=== PATIENT | male | born 1985 | race Caucasian/White ===

== ENCOUNTER 2018-02-10 11:36 | Emergency (ER) | payer SELFPAY ==
[~2018-02-10 11:36] MED LIST: ALPR-429 PO; AMOX-362 PO; ANALPRAM; AUG500 PO; BACDS PO; CIP500 PO; CLAR-1 PO; DIA10 PO; DICL-195 PO; DOC100 PO; DOXY25SU PO; FAM20 PO; GABA-549 PO; HYDR2TAB42 PO; IBU600 PO; IBU800 PO; IBUP-1618 PO; KET10 PO; LOR5 PO; LOR5/325 PO; LORA-633 PO; MAGIC; METH10 FT; METO-222 PO; METO-259 PO; METO50TA19 PO; METR-160 PO; NAP250 PO; NO HOME MEDS; NO ROUTINE MEDS; OMEP-125 PO; OMEP-137 PO; ONDA4TAB PO; OXYC-689 PO; OXYC-865 PO; OXYC1TAB54 PO; OXYC1TAB78 PO; PER PO; PHEN120S16 PO; PRO25 PO; TAM4 PO; TAMS0.4C25 PO; TRA50 PO; TRAM-420 PO; ZOLCR625PT PO
--- NOTE | 2018-02-10 11:38 | ER Report ---
History and Physical Time Seen By MD: 11:38 HPI/ROS CHIEF COMPLAINT: Right flank pain HISTORY OF PRESENT ILLNESS: Patient is a 32-year-old male here with complaints of right flank pain and history of nephrolithiasis with prior lithotripsies. Pain started last evening at approximately 1800 hrs. and acutely worsened this morning with radiation from the right flank to be right lower abdomen. Patient has been having burning with urination however denies fevers chills, chest pain , shortness of breath. Patient is hemodynamically stable at time of evaluation, afebrile. REVIEW OF SYSTEMS: Constitutional: No fever, no chills. Eyes: No discharge. ENT: No sore throat. Cardiovascular: No chest pain, no palpitations. Respiratory: No cough, no shortness of breath. Gastrointestinal: + Right flank and right abdominal pain, no vomiting. Genitourinary: + hematuria. Musculoskeletal: + Right flank and CVA tenderness Skin: No rashes. Neurological: No headache. Allergies: Coded Allergies: No Known Drug Allergies (Unverified , 02/10/18) Home Meds Active Scripts Tramadol Hcl (TRAMADOL HCL) 50 Mg Tablet, 50 MG PO Q6H Y for PAIN, #5 TAB 0 Refills Prov:CELSO PERSAUD DO 02/10/18 Discontinued Reported Medications Metoprolol Succinate (METOPROLOL SUCCINATE) 50 Mg Tab.er.24h, 3 TAB PO QDAY for Blood Pressure, TAB 05/12/16 Gabapentin (GABAPENTIN) 300 Mg Capsule, 600 MG PO TID for AD, CAPSULE 05/12/16 [No Home Meds] No Conflict Check 09/03/14 Discontinued Scripts Oxycodone Hcl/Acetaminophen (PERCOCET 5-325 MG TABLET) 1 Each Tablet, 1 EACH PO Q4H Y for PAIN, #15 TAB 0 Refills Prov:MARIA G JANG MD 05/12/16 Tamsulosin Hcl (FLOMAX) 0.4 Mg Cap.er.24h, 0.4 MG PO QDAY, #30 CAP 3 Refills Prov:MARIA G JANG MD 05/12/16 Hx Smoking: Yes Smoking Status: Current: Some Days Smoker Exposure to Second Hand Smoke?: Yes Hx Substance Use Disorder: No Hx Alcohol Use: Yes Constitutional Vital Sign - Last 24 Hours 02/10/18 02/10/18 02/10/18 02/10/18 11:37 11:41 11:51 12:00 Temp 97.5 Pulse 90 80 Resp 18 B/P (MAP) 163/109 163/109 (127) 153/101 (118) Pulse Ox 97 94 O2 Delivery Room Air 02/10/18 02/10/18 02/10/18 02/10/18 12:06 12:21 12:26 12:30 Pulse 76 78 77 Resp 31 15 B/P (MAP) 173/161 (165) Pulse Ox 92 90 98 02/10/18 02/10/18 02/10/18 02/10/18 12:41 12:56 13:00 13:05 Pulse 69 68 68 Resp 15 20 18 B/P (MAP) 136/116 (123) Pulse Ox 93 96 95 02/10/18 02/10/18 02/10/18 02/10/18 13:20 13:30 13:35 13:40 Pulse 71 68 71 Resp 18 12 11 B/P (MAP) 149/106 (120) Pulse Ox 97 96 92 02/10/18 02/10/18 13:45 13:47 Pulse 76 Resp 18 B/P (MAP) 125/81 (96) Pulse Ox 94 Physical Exam General Appearance: The patient is alert, has no immediate need for airway protection and no signs of toxicity. Moderate distress secondary to pain Eyes: Pupils equal and round no pallor or injection. ENT, Mouth: Mucous membranes are moist. Respiratory: There are no retractions, lungs are clear to auscultation. Cardiovascular: Regular rate and rhythm. Gastrointestinal: Mild tenderness to palpation in the right abdomen Neurological: No focal neurological deficits Skin: Warm and dry, no rashes. Musculoskeletal: + Right CVA tenderness Extremities are nontender, nonswollen and have full range of motion. DIFFERENTIAL DIAGNOSIS: After history and physical exam differential diagnosis was considered for back pain including but not limited to muscular pain, herniated disc, spine fracture, intra-abdominal causes and urinary tract infection., Nephrolithiasis Medical Decision Making Data Points Result Diagram: 02/10/18 1211 02/10/18 1211 Laboratory Hematology Test 02/10/18 11:39 02/10/18 12:11 Urine Color Yellow Urine Clarity Clear Urine pH 5.0 pH (4.8-9.5) Urine Specific [place] 1.016 Urine Protein Negative mg/dL (NEGATIVE) Urine Glucose (UA) Negative mg/dL (NEGATIVE) Urine Ketones Negative mg/dL (NEGATIVE) Urine Blood Small (NEGATIVE) Urine Nitrite Negative (NEGATIVE) Urine Bilirubin Negative (NEGATIVE) Urine Urobilinogen Negative mg/dL (0.2-1.9) Urine Leukocyte Esterase Negative (NEGATIVE) Urine RBC 13 /HPF (0-2/HPF) Urine WBC 2 /HPF (0-5/HPF) Urine Squamous Epithelial Cells Few /LPF (</=FEW) Urine Bacteria Negative /HPF (NONE-FEW) Urine Mucus Few /HPF (NONE-FEW) Red Blood Count 5.31 M/uL (4.00-5.60) Mean Corpuscular Volume 89.4 fL (80.0-96.0) Mean Corpuscular Hemoglobin 31.1 pg (26.0-33.0) Mean Corpuscular Hemoglobin Concent 34.8 g/dL (32.0-36.0) Red Cell Distribution Width 14.4 % (11.5-14.5) Mean Platelet Volume 7.9 fL (7.2-11.1) Neutrophils (%) (Auto) 67.6 % (39.4-72.5) Lymphocytes (%) (Auto) 20.3 % (17.6-49.6) Monocytes (%) (Auto) 9.2 % (4.1-12.4) Eosinophils (%) (Auto) 2.1 % (0.4-6.7) Basophils (%) (Auto) 0.8 % (0.3-1.4) Nucleated RBC Relative Count (auto) 0.4 /100WBC Neutrophils # (Auto) 5.8 K/uL (2.0-7.4) Lymphocytes # (Auto) 1.7 K/uL (1.3-3.6) Monocytes # (Auto) 0.8 K/uL (0.3-1.0) Eosinophils # (Auto) 0.2 K/uL (0.0-0.5) Basophils # (Auto) 0.1 K/uL (0.0-0.1) Nucleated RBC Absolute Count (auto) 0.03 K/uL Sodium Level 138 mmol/L (137-145) Potassium Level 4.7 mmol/L (3.5-5.0) Chloride Level 102 mmol/L (98-107) Carbon Dioxide Level 26 mmol/L (22-30) Blood Urea Nitrogen 18 mg/dl (9-21) Creatinine 1.10 mg/dl (0.66-1.25) Glomerular Filtration Rate Calc > 60.0 Random Glucose 94 mg/dl (75-110) Lactate 1.2 mmol/L (0.7-2.1) Calcium Level 9.6 mg/dl (8.4-10.2) Total Bilirubin 0.4 mg/dl (0.2-1.3) Aspartate Amino Transf (AST/SGOT) 23 U/L (0-35) Alanine Aminotransferase (ALT/SGPT) 32 U/L (0-56) Alkaline Phosphatase 66 U/L (0-126) Total Protein 7.6 g/dl (6.3-8.2) Albumin 4.5 g/dl (3.5-5.0) Lipase 213 U/L (23-300) Chemistry Test 02/10/18 11:39 02/10/18 12:11 Urine Color Yellow Urine Clarity Clear Urine pH 5.0 pH (4.8-9.5) Urine Specific [place] 1.016 Urine Protein Negative mg/dL (NEGATIVE) Urine Glucose (UA) Negative mg/dL (NEGATIVE) Urine Ketones Negative mg/dL (NEGATIVE) Urine Blood Small (NEGATIVE) Urine Nitrite Negative (NEGATIVE) Urine Bilirubin Negative (NEGATIVE) Urine Urobilinogen Negative mg/dL (0.2-1.9) Urine Leukocyte Esterase Negative (NEGATIVE) Urine RBC 13 /HPF (0-2/HPF) Urine WBC 2 /HPF (0-5/HPF) Urine Squamous Epithelial Cells Few /LPF (</=FEW) Urine Bacteria Negative /HPF (NONE-FEW) Urine Mucus Few /HPF (NONE-FEW) White Blood Count 8.6 k/uL (4.5-11.0) Red Blood Count 5.31 M/uL (4.00-5.60) Hemoglobin 16.5 g/dL (14.0-18.0) Hematocrit 47.5 % (42.0-52.0) Mean Corpuscular Volume 89.4 fL (80.0-96.0) Mean Corpuscular Hemoglobin 31.1 pg (26.0-33.0) Mean Corpuscular Hemoglobin Concent 34.8 g/dL (32.0-36.0) Red Cell Distribution Width 14.4 % (11.5-14.5) Platelet Count 207 K/uL (150-450) Mean Platelet Volume 7.9 fL (7.2-11.1) Neutrophils (%) (Auto) 67.6 % (39.4-72.5) Lymphocytes (%) (Auto) 20.3 % (17.6-49.6) Monocytes (%) (Auto) 9.2 % (4.1-12.4) Eosinophils (%) (Auto) 2.1 % (0.4-6.7) Basophils (%) (Auto) 0.8 % (0.3-1.4) Nucleated RBC Relative Count (auto) 0.4 /100WBC Neutrophils # (Auto) 5.8 K/uL (2.0-7.4) Lymphocytes # (Auto) 1.7 K/uL (1.3-3.6) Monocytes # (Auto) 0.8 K/uL (0.3-1.0) Eosinophils # (Auto) 0.2 K/uL (0.0-0.5) Basophils # (Auto) 0.1 K/uL (0.0-0.1) Nucleated RBC Absolute Count (auto) 0.03 K/uL Glomerular Filtration Rate Calc > 60.0 Lactate 1.2 mmol/L (0.7-2.1) Calcium Level 9.6 mg/dl (8.4-10.2) Total Bilirubin 0.4 mg/dl (0.2-1.3) Aspartate Amino Transf (AST/SGOT) 23 U/L (0-35) Alanine Aminotransferase (ALT/SGPT) 32 U/L (0-56) Alkaline Phosphatase 66 U/L (0-126) Total Protein 7.6 g/dl (6.3-8.2) Albumin 4.5 g/dl (3.5-5.0) Lipase 213 U/L (23-300) Urinalysis Test 02/10/18 11:39 Urine Color Yellow Urine Clarity Clear Urine pH 5.0 pH (4.8-9.5) Urine Specific [place] 1.016 Urine Protein Negative mg/dL (NEGATIVE) Urine Glucose (UA) Negative mg/dL (NEGATIVE) Urine Ketones Negative mg/dL (NEGATIVE) Urine Blood Small (NEGATIVE) Urine Nitrite Negative (NEGATIVE) Urine Bilirubin Negative (NEGATIVE) Urine Urobilinogen Negative mg/dL (0.2-1.9) Urine Leukocyte Esterase Negative (NEGATIVE) Urine RBC 13 /HPF (0-2/HPF) Urine WBC 2 /HPF (0-5/HPF) Urine Squamous Epithelial Cells Few /LPF (</=FEW) Urine Bacteria Negative /HPF (NONE-FEW) Urine Mucus Few /HPF (NONE-FEW) EKG/Imaging Imaging Location: [facility] - [place] Patient: Troy Mabry : 1985 Visit/Account:[id number] Date of Sevice: 02/10/2018 CT abdomen and pelvis without contrast Indication: Right flank pain. History of nephrolithiasis. Comparison: 08/18/2012. Technique: Axial CT images are obtained through the abdomen and pelvis. Reformatted coronal and sagittal images were reviewed. IV contrast was not administered. One of the following dose optimization techniques was utilized in the performance of this exam: automated exposure control; adjustment of the mA and/ or kV according to the patient's size; or use of an iterative reconstruction technique. Specific details can be referenced in the facility's radiology CT exam operational policy. Findings: Lower lung grissom: Limited views lower lung field are unremarkable. Evaluation of the solid organs of the abdomen is limited without IV contrast. Liver: No focal parenchymal abnormality of the liver. Biliary: Gallbladder appears unremarkable as well as the intra and extra hepatic biliary system. Pancreas: Normal appearance. Spleen: Normal appearance. Adrenal glands: Unremarkable. Kidneys / retroperitoneum: Both kidneys show several small stones in the collecting system, 2 mm and less. More on the left side. No hydronephrosis seen in either kidney. Ureters show no discrete stones. Kidneys show no discrete lesions. Bowel / peritoneum / mesenteries: Is a small short segment of luminal narrowing and wall thickening the hepatic flexure region the colon without focal abnormality. The colon shows no other focal abnormality. The appendix is not identified. Small bowel shows no focal normality or obstruction. The stomach is mainly decompressed and grossly normal. No free air, free fluid, fluid collections or areas of inflammation. Lymph node assessment: No pathologic adenopathy identified. Pelvic structures: Appear unremarkable. Vessels: No significant atherosclerotic calcifications seen throughout a nonaneurysmal abdominal aorta and branches. Musculoskeletal / Body wall: No acute or aggressive osseous abnormality. IMPRESSION: 1. Bilateral nonobstructing renal calculi. 2. The hepatic flexure region colon does show short segment of luminal narrowing and wall thickening. There is no focal abnormality. This could be due to contraction. However follow-up colonoscopy can evaluate for underlying pathology. ED Course/Re-evaluation ED Course Patient is a 32-year-old male with a history of nephrolithiasis status post lithotripsy here with right CVA tenderness with radiation to the right abdomen and groin since last evening acutely worsening today. Patient was initially treated with intravenous lidocaine for renal colic, fluids and Zofran. Labs were remarkable for small amount of blood in the urine however were otherwise unremarkable. CT of the abdomen and pelvis showed renal calculi with no evidence of obstruction or ureterolithiasis. Urinalysis showed no signs of infection. Patient was discharged in stable condition and advised to follow-up with his PCP in the next week. Patient was given a prescription for tramadol for outpatient analgesia. Decision to Disposition Date: Feb 10, 2018 Decision to Disposition Time: 13:40 Depart Departure Latest Vital Signs Vital Signs Date Time Temp Pulse Resp B/P (MAP) Pulse Ox O2 Delivery O2 Flow Rate FiO2 02/10/18 13:47 125/81 (96) 02/10/18 13:45 76 18 94 02/10/18 11:37 97.5 Room Air Impression: Primary Impression: Flank pain Condition: Improved Disposition: HOME OR SELF-CARE New Scripts Tramadol Hcl (TRAMADOL HCL) 50 Mg Tablet 50 MG PO Q6H Y for PAIN, #5 TAB 0 Refills Prov: CELSO PERSAUD DO 02/10/18 Patient Instructions: Flank Pain (ED) Additional Instructions: Please follow-up with her family doctor in the next week. No obstructing kidney stones were identified on the ear exam. You may need to follow up for colonoscopy as there was an incidental narrowing of the bowel identified on CT imaging. You may take tramadol 1 tablet every 6-8 hours as needed for breakthrough pain control. He may take naproxen 500 mg every 12 hours as needed for pain control. CELSO PERSAUD DO Feb 10, 2018 11:38
[2018-02-10] MEDS ORDERED: NS(*) 0.9% 1000 ML BAG 1,000 ML IV ONE (11:47)
[2018-02-10] MEDS ORDERED: LIDOCAINE 2% IV 100 MG/5ML SYR IVP ONE (11:50)
[2018-02-10] MEDS ORDERED: ONDANSETRON 4 MG/2 ML VIAL IVP ONE (11:50)
[2018-02-10 12:37] LABS: PLATELET COUNT, AUTOMATED 207 K/uL (150-450)
--- NOTE | 2018-02-10 13:37 | RADIOLOGY IMAGING REPORT ---
FACILITY: [facility] PATIENT NAME: Troy Mabry : 1985 MR: [id number] V: [id number] EXAM DATE: [id number] ORDERING PHYSICIAN: CELSO PERSAUD TECHNOLOGIST: Location: [facility] - [place] Patient: Troy Mabry : 1985 Visit/Account:[id number] Date of Sevice: 02/10/2018 CT abdomen and pelvis without contrast Indication: Right flank pain. History of nephrolithiasis. Comparison: 08/18/2012. Technique: Axial CT images are obtained through the abdomen and pelvis. Reformatted coronal and sagit migel images were reviewed. IV contrast was not administered. One of the following dose optimization techniques was utilized in the performance of this exam: auto mated exposure control; adjustment of the mA and/or kV according to the patient's size; or use of an iterative reconstruction technique. Specific details can be referenced in the facility's radiology C T exam operational policy. Findings: Lower lung grissom: Limited views lower lung field are unremarkable. Evaluation of the solid organs of the abdomen is limited without IV contrast. Liver: No focal parenchymal abnormality of the liver. Biliary: Gallbladder appears unremarkable as well as the intra and extra hepatic biliary system. Pancreas: Normal appearance. Spleen: Normal appearance. Adrenal glands: Unremarkable. Kidneys / retroperitoneum: Both kidneys show several small stones in the collecting system, 2 mm and less. More on the left side. No hydronephrosis seen in either kidney. Ureters show no discrete stones . Kidneys show no discrete lesions. Bowel / peritoneum / mesenteries: Is a small short segment of luminal narrowing and wall thickening t he hepatic flexure region the colon without focal abnormality. The colon shows no other focal abnorma lity. The appendix is not identified. Small bowel shows no focal normality or obstruction. The stomac h is mainly decompressed and grossly normal. No free air, free fluid, fluid collections or areas of inflammation. Lymph node assessment: No pathologic adenopathy identified. Pelvic structures: Appear unremarkable. Vessels: No significant atherosclerotic calcifications seen throughout a nonaneurysmal abdominal aort a and branches. Musculoskeletal / Body wall: No acute or aggressive osseous abnormality. IMPRESSION: 1. Bilateral nonobstructing renal calculi. 2. The hepatic flexure region colon does show short segment of luminal narrowing and wall thickening. There is no focal abnormality. This could be due to contraction. However follow-up colonoscopy can e valuate for underlying pathology. Report Dictated By: Saran Castellon at 02/10/2018 1:26 PM Report E-Signed By: Saran Castellon at 02/10/2018 1:33 PM WSN:[id number]
[2018-02-10] MEDS ORDERED: TRAM-420 PO (13:45)
[2018-02-10 13:47] VITALS: BP 125/81
== END 2018-02-10 13:53 | disposition home or self-care (01) ==
LOC: ER 11:56
DX: R10.31 Right lower quadrant pain (principal); N20.0 Calculus of kidney
CPT/HCPCS: 74176; 81001; 83605; 83690; 85025; 96361; 96374; 99284; J2001; J2405; J7030; 82040; 82247; 82310; 82374; 82435; 82565; 82947; 84075; 84132; 84155; 84295; 84450; 84460; 84520

== ENCOUNTER → 2018-02-23 | Outpatient (REF) | payer SELFPAY | LOC: ZZSENDIN 17:43 | DX: N30.01 Acute cystitis with hematuria (principal) | CPT/HCPCS: 81001; 87088 ==

== ENCOUNTER 2018-04-13 03:07 | Emergency (ER) | payer SELFPAY ==
--- NOTE | 2018-04-13 03:11 | ER Report ---
History and Physical Time Seen By MD: 03:09 HPI/ROS CHIEF COMPLAINT: Right ankle injury HISTORY OF PRESENT ILLNESS: 32-year-old male presents via wheelchair complaining of severe right ankle pain. He rolled his ankle area. Patient has a history of previous ankle injury. Patient scraped his knees. He thinks his last tetanus shots greater than 10 years. Allergies: Coded Allergies: No Known Drug Allergies (Unverified , 04/13/18) Home Meds Active Scripts Hydrocodone Bit/Acetaminophen (HYDROCODON-ACETAMINOPHEN 5-325) 1 Each Tablet, 1 EACH PO Q4-6H PRN for PAIN, #12 TAKE ONE TABLET BY MOUTH EVERY 4-6 HOURS NEEDED FOR PAIN Prov:AMXI BULLARD DO 04/13/18 Tramadol Hcl (TRAMADOL HCL) 50 Mg Tablet, 50 MG PO Q6H PRN for PAIN, #5 TAB 0 Refills Prov:CELSO PERSAUD DO 02/10/18 Reported Medications Clindamycin Palmitate Hcl (CLINDAMYCIN PALMITATE HCL) 75 Mg/5 Ml Soln.recon, 150 MG PO Q6H, BOT 04/13/18 Gabapentin (GABAPENTIN) 300 Mg Capsule, 300 MG PO TID, CAPSULE 04/13/18 Amlodipine Besylate (AMLODIPINE BESYLATE) 2.5 Mg Tablet, 1 TAB PO QDAY, #30 TAB 04/13/18 Reviewed Nurses Notes: Yes Old Medical Records Reviewed: Yes Hx Smoking: Yes Smoking Status: Current: Some Days Smoker Exposure to Second Hand Smoke?: Yes Hx Substance Use Disorder: No Hx Alcohol Use: Yes Constitutional Vital Sign - Last 24 Hours 04/13/18 04/13/18 03:10 03:54 Temp 99.1 Pulse 80 85 Resp 14 16 B/P (MAP) 134/96 132/85 (101) Pulse Ox 96 92 O2 Delivery Room Air Room Air Physical Exam General appearance: Alert no distress. Respiratory: Chest is non tender, lungs are clear to auscultation. Cardiac: Regular rate and rhythm Extremities: The right ankle is has gross swelling. All digits are neurovascularly intact. DIFFERENTIAL DIAGNOSIS: After history and physical exam differential diagnosis was considered for sprain, strain, fracture, dislocation, contusion Medical Decision Making EKG/Imaging Imaging X-ray: Right ankle, 3 views was obtained. I viewed the images myself on the PACS system. My interpretation of the images is: No fracture no dislocation or malalignment, there are some opacities in the inferior aspect of the lateral malleolus likely old. The radiologist interpretation had no clinically significant variation from this interpretation. ED Course/Re-evaluation ED Course Patient was admitted to an examination room. H&P was done. The differential diagnosis was considered. On clinical examination. Swollen right ankle consistent with a sprain. Diagnostic x-rays show a new obvious fractures. There is some cortications at the base of the lateral malleolus which are likely old. Patient was placed in Oren wrap and air splint. He is advised nonweightbearing for several days. Patient advised ibuprofen 600 mg 3 times daily. A prescription in for a limited number of hydrocodone were provided. Decision to Disposition Date: Apr 13, 2018 Decision to Disposition Time: 03:34 Depart Departure Latest Vital Signs Vital Signs Date Time Temp Pulse Resp B/P (MAP) Pulse Ox O2 Delivery O2 Flow Rate FiO2 04/13/18 03:54 85 16 132/85 (101) 92 Room Air 04/13/18 03:10 99.1 Impression: Primary Impression: Moderate right ankle sprain Additional Impression: Avulsion fracture Condition: Improved Disposition: HOME OR SELF-CARE Referrals: MEHRDAD MAYERS MD New Scripts Hydrocodone Bit/Acetaminophen (HYDROCODON-ACETAMINOPHEN 5-325) 1 Each Tablet 1 EACH PO Q4-6H PRN for PAIN, #12 TAKE ONE TABLET BY MOUTH EVERY 4-6 HOURS NEEDED FOR PAIN Prov: MAXI BULLARD DO 04/13/18 Patient Instructions: Ankle Sprain (ED) Additional Instructions: Take ibuprofen 200 mg 3 tablets 3 times a day with food. Problem Qualifiers Primary Impression: Moderate right ankle sprain Encounter type: initial encounter Qualified Codes: S93.401A - Sprain of unspecified ligament of right ankle, initial encounter MAXI BULLARD DO Apr 13, 2018 03:11
[2018-04-13] MEDS ORDERED: GABA-549 PO (03:15)
[2018-04-13] MEDS ORDERED: AMLO2.5T76 PO (03:15)
[2018-04-13] MEDS ORDERED: CLIN75SO6 PO (03:17)
[2018-04-13] MEDS ORDERED: APAP/HYDROCODONE 325/5 TAB PO ONE (03:20)
[2018-04-13] MEDS ORDERED: DIPHTH/TETANUS/ACEL. PERTUSSIS IM ONLY ONE (03:20)
[2018-04-13] MEDS ORDERED: IBUPROFEN 600 MG TAB PO ONE (03:20)
[2018-04-13] MEDS ORDERED: LOR5/325 PO (03:39)
--- NOTE | 2018-04-13 03:43 | RADIOLOGY IMAGING REPORT ---
FACILITY: [facility] PATIENT NAME: Troy Mabry : 1985 MR: [id number] V: [id number] EXAM DATE: ORDERING PHYSICIAN: MAXI BULLARD TECHNOLOGIST: Location: [facility] [place] Patient: Troy Mabry : 1985 Visit/Account:[id number] Date of Sevice: 04/13/2018 INDICATION: rolled ankle r/o Fx. DATE: 04/13/2018 3:38 AM. TECHNIQUE: ANKLE 3 VIEW MIN RIGHT COMPARISON: Ankle radiographs September 03, 2014 FINDINGS: There has been surgery at the distal ankle with a syndesmotic repair. Soft tissues are swol pipe over the lateral malleolus. The fragment at the tip of the lateral malleolus is well corticated. IMPRESSION: Soft tissue swelling over the lateral malleolus and history of prior ankle surgical repair but no acu te osseous abnormality. Report Dictated By: Karl Patiño MD at 04/13/2018 3:38 AM Report E-Signed By: Karl Patiño MD at 04/13/2018 3:40 AM WSN:[id number]
[2018-04-13 03:54] VITALS: BP 132/85
== END 2018-04-13 03:57 | disposition home or self-care (01) ==
LOC: ER 03:11
DX: S93.401A Sprain of unspecified ligament of right ankle, initial encounter (principal)
CPT/HCPCS: 73610; 90471; 90715; 99283; L1930

== ENCOUNTER 2018-05-14 20:13 | Emergency (ER) | payer SELFPAY ==
[~2018-05-14 20:13] MED LIST changes: +AMLO2.5T76 PO; +CLIN75SO6 PO; -METR-160 PO; +METR500T54 PO
[2018-05-14] MEDS ORDERED: HYDROMORPHONE HCL 1 MG/ML SYRINGE IVP ONE (20:20)
[2018-05-14] MEDS ORDERED: ONDANSETRON 4 MG/2 ML VIAL IVP ONE (20:20)
[2018-05-14] MEDS ORDERED: NS(*) 0.9% 1000 ML BAG 1,000 ML IV ONE (20:20)
[2018-05-14] MEDS ORDERED: METO50TA19 PO (20:22)
[2018-05-14] MEDS ORDERED: IOPAMIDOL 76% 75 ML INFUS BTL 75 ML ONE (20:34)
--- NOTE | 2018-05-14 20:34 | ER Report ---
History and Physical Time Seen By MD: 20:19 Hx. of Stated Complaint: C/O "KIDNEY STONES," BILATERAL FLANK PAIN RADIATING AROUND TO FRONT, DYSURIA, VOMITING X 6, ONSET LAST NIGHT. HPI/ROS CHIEF COMPLAINT: abdominal pain, thinks may be passing kidney stones HISTORY OF PRESENT ILLNESS: This is a 32 year old male. He has had abdominal pain and bilateral flank pain. These have been present since Monday evening. He has had dark urine and thinks that he is having kidney stones again, has had multiple lithotripsies in the past. Has no fevers. Nothing makes the pain worse or better. Has no pain with urination. Has no diarrhea or changes in bowels. He has poor appetite. He did drink on Monday evening, which is when the pain started. Allergies: Coded Allergies: No Known Drug Allergies (Unverified , 04/13/18) Home Meds Active Scripts Ondansetron (ONDANSETRON ODT) 4 Mg Tab.rapdis, 4 MG PO Q6H PRN for NAUSEA/VOMITING, #20 TAB 0 Refills Prov:MARIA G JANG MD 05/15/18 Oxycodone Hcl/Acetaminophen (PERCOCET 5-325 MG TABLET) 1 Each Tablet, 1 EACH PO Q4H PRN for PAIN, #12 TAB 0 Refills Prov:MARIA G JANG MD 05/15/18 Reported Medications Metoprolol Succinate (METOPROLOL SUCCINATE) 50 Mg Tab.er.24h, 2 TAB PO QDAY, TAB 05/14/18 Gabapentin (GABAPENTIN) 300 Mg Capsule, 300 MG PO TID, CAPSULE 04/13/18 Amlodipine Besylate (AMLODIPINE BESYLATE) 2.5 Mg Tablet, 1 TAB PO QDAY, #30 TAB 04/13/18 Discontinued Reported Medications Clindamycin Palmitate Hcl (CLINDAMYCIN PALMITATE HCL) 75 Mg/5 Ml Soln.recon, 150 MG PO Q6H, BOT 04/13/18 Discontinued Scripts Hydrocodone Bit/Acetaminophen (HYDROCODON-ACETAMINOPHEN 5-325) 1 Each Tablet, 1 EACH PO Q4-6H PRN for PAIN, #12 TAKE ONE TABLET BY MOUTH EVERY 4-6 HOURS NEEDED FOR PAIN Prov:MAXI BULLARD DO 04/13/18 Tramadol Hcl (TRAMADOL HCL) 50 Mg Tablet, 50 MG PO Q6H PRN for PAIN, #5 TAB 0 Refills Prov:CELSO PERSAUD DO 02/10/18 Reviewed Nurses Notes: Yes Hx Smoking: Yes Smoking Status: Current: Some Days Smoker Exposure to Second Hand Smoke?: Yes Hx Substance Use Disorder: No Hx Alcohol Use: Yes Constitutional Vital Sign - Last 24 Hours 05/14/18 05/14/18 05/14/18 05/14/18 20:16 20:17 20:28 20:58 Temp 98.6 Pulse 78 84 71 Resp 16 B/P (MAP) 160/105 (123) 160/105 Pulse Ox 99 96 89 O2 Delivery Room Air 05/14/18 05/14/18 05/14/18 05/14/18 21:13 21:33 21:48 22:03 Pulse 68 70 75 66 Pulse Ox 89 93 91 91 05/14/18 05/14/18 05/14/18 05/14/18 22:08 22:23 22:38 23:57 Pulse 68 67 73 B/P (MAP) 170/99 (122) Pulse Ox 90 93 94 05/15/18 05/15/18 05/15/18 05/15/18 00:00 00:08 00:13 00:30 Pulse 69 B/P (MAP) 161/101 (121) 149/93 (111) Pulse Ox 92 91 05/15/18 05/15/18 05/15/18 05/15/18 00:43 00:58 01:00 01:13 Pulse 95 76 B/P (MAP) 144/86 (105) Pulse Ox 91 Intake and Output0 05/14/18 05/14/18 05/15/18 15:00 23:00 07:00 Intake Total 1000 ml Balance 1000 ml Physical Exam General Appearance: The patient is alert. Acute distress because of pain. Non-toxic in appearance. Eyes: Pupils are equal, round. No pallor, injection or icterus. ENT: Mucous membranes are moist. Normal oral mucosa. Posterior oropharynx is normal. Neck: Supple and non tender. Respiratory: Lungs are clear to auscultation. Cardiovascular: Regular rate and rhythm. No murmurs, gallops or rubs. Normal capillary refill. Gastrointestinal: Abdomen is soft, diffuse tenderness, worse central abdomen. Nondistended. Guarding, but no rebound. Normal active bowel sounds. No costovertebral angle tenderness with percussion. Neurological: Alert and oriented x3. No focal neurologic deficits Skin: Warm and dry. DIFFERENTIAL DIAGNOSIS: After history and physical exam, differential diagnosis was considered for pain including but not limited to biliary colic, kidney stones, cholecystitis, peptic ulcer disease, pancreatitis, and gastroenteritis. Medical Decision Making Data Points Result Diagram: 05/14/18203205/14/182032 Laboratory Hematology Test 05/14/18 20:33 05/14/18 20:45 Red Blood Count 5.61 M/uL (4.00-5.60) Mean Corpuscular Volume 88.9 fL (80.0-96.0) Mean Corpuscular Hemoglobin 30.9 pg (26.0-33.0) Mean Corpuscular Hemoglobin Concent 34.8 g/dL (32.0-36.0) Red Cell Distribution Width 14.1 % (11.5-14.5) Mean Platelet Volume 7.7 fL (7.2-11.1) Neutrophils (%) (Auto) 77.9 % (39.4-72.5) Lymphocytes (%) (Auto) 10.8 % (17.6-49.6) Monocytes (%) (Auto) 10.3 % (4.1-12.4) Eosinophils (%) (Auto) 0.6 % (0.4-6.7) Basophils (%) (Auto) 0.4 % (0.3-1.4) Nucleated RBC Relative Count (auto) 0.1 /100WBC Neutrophils # (Auto) 8.9 K/uL (2.0-7.4) Lymphocytes # (Auto) 1.2 K/uL (1.3-3.6) Monocytes # (Auto) 1.2 K/uL (0.3-1.0) Eosinophils # (Auto) 0.1 K/uL (0.0-0.5) Basophils # (Auto) 0.0 K/uL (0.0-0.1) Nucleated RBC Absolute Count (auto) 0.01 K/uL Sodium Level 137 mmol/L (137-145) Potassium Level 3.9 mmol/L (3.5-5.0) Chloride Level 101 mmol/L (98-107) Carbon Dioxide Level 24 mmol/L (22-30) Blood Urea Nitrogen 15 mg/dl (9-21) Creatinine 1.00 mg/dl (0.66-1.25) Glomerular Filtration Rate Calc > 60.0 Random Glucose 110 mg/dl (75-110) Calcium Level 9.8 mg/dl (8.4-10.2) Total Bilirubin 1.1 mg/dl (0.2-1.3) Aspartate Amino Transf (AST/SGOT) 40 U/L (0-35) Alanine Aminotransferase (ALT/SGPT) 37 U/L (0-56) Alkaline Phosphatase 77 U/L (0-126) Total Protein 8.3 g/dl (6.3-8.2) Albumin 4.6 g/dl (3.5-5.0) Urine Color Yellow Urine Clarity Clear Urine pH 5.0 pH (4.8-9.5) Urine Specific [place] 1.019 Urine Protein Negative mg/dL (NEGATIVE) Urine Glucose (UA) Negative mg/dL (NEGATIVE) Urine Ketones 80 mg/dL (NEGATIVE) Urine Blood Moderate (NEGATIVE) Urine Nitrite Negative (NEGATIVE) Urine Bilirubin Negative (NEGATIVE) Urine Urobilinogen Negative mg/dL (0.2-1.9) Urine Leukocyte Esterase Negative (NEGATIVE) Urine RBC 55 /HPF (0-2/HPF) Urine WBC 5 /HPF (0-5/HPF) Urine Squamous Epithelial Cells None /LPF (</=FEW) Urine Calcium Oxalate Crystals Few /HPF (NONE) Urine Bacteria Negative /HPF (NONE-FEW) Urine Mucus Few /HPF (NONE-FEW) Chemistry Test 05/14/18 20:33 05/14/18 20:45 White Blood Count 11.4 k/uL (4.5-11.0) Red Blood Count 5.61 M/uL (4.00-5.60) Hemoglobin 17.4 g/dL (14.0-18.0) Hematocrit 49.9 % (42.0-52.0) Mean Corpuscular Volume 88.9 fL (80.0-96.0) Mean Corpuscular Hemoglobin 30.9 pg (26.0-33.0) Mean Corpuscular Hemoglobin Concent 34.8 g/dL (32.0-36.0) Red Cell Distribution Width 14.1 % (11.5-14.5) Platelet Count 224 K/uL (150-450) Mean Platelet Volume 7.7 fL (7.2-11.1) Neutrophils (%) (Auto) 77.9 % (39.4-72.5) Lymphocytes (%) (Auto) 10.8 % (17.6-49.6) Monocytes (%) (Auto) 10.3 % (4.1-12.4) Eosinophils (%) (Auto) 0.6 % (0.4-6.7) Basophils (%) (Auto) 0.4 % (0.3-1.4) Nucleated RBC Relative Count (auto) 0.1 /100WBC Neutrophils # (Auto) 8.9 K/uL (2.0-7.4) Lymphocytes # (Auto) 1.2 K/uL (1.3-3.6) Monocytes # (Auto) 1.2 K/uL (0.3-1.0) Eosinophils # (Auto) 0.1 K/uL (0.0-0.5) Basophils # (Auto) 0.0 K/uL (0.0-0.1) Nucleated RBC Absolute Count (auto) 0.01 K/uL Glomerular Filtration Rate Calc > 60.0 Calcium Level 9.8 mg/dl (8.4-10.2) Total Bilirubin 1.1 mg/dl (0.2-1.3) Aspartate Amino Transf (AST/SGOT) 40 U/L (0-35) Alanine Aminotransferase (ALT/SGPT) 37 U/L (0-56) Alkaline Phosphatase 77 U/L (0-126) Total Protein 8.3 g/dl (6.3-8.2) Albumin 4.6 g/dl (3.5-5.0) Urine Color Yellow Urine Clarity Clear Urine pH 5.0 pH (4.8-9.5) Urine Specific [place] 1.019 Urine Protein Negative mg/dL (NEGATIVE) Urine Glucose (UA) Negative mg/dL (NEGATIVE) Urine Ketones 80 mg/dL (NEGATIVE) Urine Blood Moderate (NEGATIVE) Urine Nitrite Negative (NEGATIVE) Urine Bilirubin Negative (NEGATIVE) Urine Urobilinogen Negative mg/dL (0.2-1.9) Urine Leukocyte Esterase Negative (NEGATIVE) Urine RBC 55 /HPF (0-2/HPF) Urine WBC 5 /HPF (0-5/HPF) Urine Squamous Epithelial Cells None /LPF (</=FEW) Urine Calcium Oxalate Crystals Few /HPF (NONE) Urine Bacteria Negative /HPF (NONE-FEW) Urine Mucus Few /HPF (NONE-FEW) Urinalysis Test 05/14/18 20:45 Urine Color Yellow Urine Clarity Clear Urine pH 5.0 pH (4.8-9.5) Urine Specific [place] 1.019 Urine Protein Negative mg/dL (NEGATIVE) Urine Glucose (UA) Negative mg/dL (NEGATIVE) Urine Ketones 80 mg/dL (NEGATIVE) Urine Blood Moderate (NEGATIVE) Urine Nitrite Negative (NEGATIVE) Urine Bilirubin Negative (NEGATIVE) Urine Urobilinogen Negative mg/dL (0.2-1.9) Urine Leukocyte Esterase Negative (NEGATIVE) Urine RBC 55 /HPF (0-2/HPF) Urine WBC 5 /HPF (0-5/HPF) Urine Squamous Epithelial Cells None /LPF (</=FEW) Urine Calcium Oxalate Crystals Few /HPF (NONE) Urine Bacteria Negative /HPF (NONE-FEW) Urine Mucus Few /HPF (NONE-FEW) EKG/Imaging Imaging Computed tomograpy abdomen and pelvis with IV contrast Indication: Flank pain. History of renal stones. Comparison: 02/10/2018. Technique: Transaxial computed tomography images were obtained through the abdomen and pelvis following the injection of nonionic iodinated intravenous contrast. Reformatted coronal and sagittal images were also obtained. One of the following dose optimization techniques was utilized in the performance of this exam: Automated exposure control; adjustment of the mA and/or kV according to the patient's size; or use of an iterative reconstruction technique. Specific details can be referenced in the facility's radiology CT exam operational policy. Contrast: 75 ml of Isovue-370 IV contrast. Findings: Lower lung grissom: Limited views lower lung field are unremarkable. Liver: There is mild diffuse fatty liver. No focal parenchymal abnormality or intrahepatic biliary dilatation is seen. Biliary: Gallbladder is borderline distended/hydropic measuring 9.9 cm in length. No calcified stones. No definitive extrahepatic biliary dilatation is seen. Pancreas: There is extensive peripancreatic inflammatory stranding and ill- defined peripancreatic fluid within the retroperitoneum. There is mild heterogeneous enhancement of the head and uncinate process which may be related to parenchymal edema. No ductal dilatation. Findings are compatible with acute pancreatitis. Areas of suspected fluid attenuation are seen most pronounced about the tail extending about the transverse portion of the duodenum and along Gerota's fascia. Small amount of fluid extends about the gallbladder within the gallbladder fossa. Splenic vein is well opacified with contrast as is the superior mesenteric vein and the portal vein. Spleen: Normal appearance. Adrenal glands: Unremarkable. Kidneys / retroperitoneum: There are are bilateral nonobstructing renal calculi identified. These calculi were seen on the previous noncontrast study. No ureteral dilatation or ureteral calculi. Bowel / peritoneum / mesenteries: No colonic wall thickening or pericolonic inflammatory changes are seen. There is some wall thickening of the transverse portion of the duodenum extending to the descending portion of the duodenum a djacent to the pancreatic inflammation. This is felt to represent reactive wall thickening. No evidence for duodenal obstruction. No free pelvic fluid. Lymph node assessment: No pathologic adenopathy identified. Pelvic structures: Appear unremarkable. Vessels: No significant atherosclerotic calcifications seen throughout a nonaneurysmal abdominal aorta and branches. Musculoskeletal / Body wall: No acute or aggressive osseous abnormality. IMPRESSION: 1. CT findings consistent with acute pancreatitis with marked peripancreatic inflammation with ill-defined areas of fluid attenuation as detailed above. 2. Gallbladder distention without calcified gallstones. 3. Mild fatty liver. 4. Wall thickening of the second and third portion of the duodenum which is felt to be reactive to the peripancreatic inflammation. 5. Multiple nonobstructing bilateral renal calculi. Report Dictated By: Lyndon Eid at 05/14/2018 9:51 PM GALLBLADDER HISTORY: Pancreatitis. COMPARISON: None. FINDINGS: Pancreas: Echogenic and enlarged. No peripancreatic fluid collection or pseudo cyst. There is mild adjacent edema. Upper abdominal aorta and IVC: Aorta and IVC are patent by color Doppler and are unremarkable. Mid aorta is 1.6 cm in cross-section. Liver: Normal. The portal vein is patent with normal hepatopetal flow. Hepatic vein is patent. Gallbladder: No stones, wall thickening, or pericholecystic fluid. Negative sonographic Del Cid sign. Common duct: Normal, measuring 5 mm. Right kidney: Normal in size and echogenicity. It measures 10.7 x 4.5 x 6.3 cm. No hydronephrosis. Ascites: None. IMPRESSION: 1. Echogenic and enlarged pancreas with adjacent edema, compatible with pancreatitis. No pseudocyst. 2. Normal gallbladder. The remainder of the right upper quadrant ultrasound is also normal. Report Dictated By: Lottie Garcia at 05/15/2018 12:07 AM ED Course/Re-evaluation Clinical Indication for ER IV: Hydration, IV Access ED Course The patient's pain improved with morphine. Initial Dilaudid did not help much. He received a few doses of morphine. IV fluids. CT scan obtained and shows pancreatitis. Discussed with the patient regarding the symptoms, we talked about possible admission however the patient is able to tolerate liquids and was able to take oral pain medicines without problem. He would like to try and return home and treat with clear liquids and bland diet. Decision to Disposition Date: May 15, 2018 Decision to Disposition Time: 01:14 Depart Departure Latest Vital Signs Vital Signs Date Time Temp Pulse Resp B/P (MAP) Pulse Ox O2 Delivery O2 Flow Rate FiO2 05/15/18 01:13 91 05/15/18 01:00 144/86 (105) 05/15/18 00:58 76 05/14/18 20:17 98.6 16 Room Air Impression: Primary Impression: Pancreatitis Condition: Improved Disposition: HOME OR SELF-CARE New Scripts Ondansetron (ONDANSETRON ODT) 4 Mg Tab.rapdis 4 MG PO Q6H PRN for NAUSEA/VOMITING, #20 TAB 0 Refills Prov: MARIA G JANG MD 05/15/18 Oxycodone Hcl/Acetaminophen (PERCOCET 5-325 MG TABLET) 1 Each Tablet 1 EACH PO Q4H PRN for PAIN, #12 TAB 0 Refills Prov: MARIA G JANG MD 05/15/18 Patient Instructions: Pancreatitis (ED) Additional Instructions: Start with Clear liquids and bland diet for the next 24 hours. Slowly advance diet as pain improves. Return if unable to tolerate oral intake and will need to consider admission to the hospital. Avoid alcohol. Problem Qualifiers Primary Impression: Pancreatitis Chronicity: acute Pancreatitis type: alcohol induced Acute pancreatitis complication: no infection or necrosis Qualified Codes: K85.20 - Alcohol induced acute pancreatitis without necrosis or infection MARIA G JANG MD May 14, 2018 20:34
[2018-05-14 20:39] LABS: PLATELET COUNT, AUTOMATED 224 K/uL (150-450)
[2018-05-14] MEDS ORDERED: MORPHINE 4 MG/ML SDV IVP ONE ×2 (21:30→23:55)
--- NOTE | 2018-05-14 22:11 | RADIOLOGY IMAGING REPORT ---
[place]AC[place] [facility] [place] NAME: Troy Mabry : 1985 MR: [id number] V: [id number] EXAM DATE: ORDERING PHYSICIAN: MARIA G JANG TECHNOLOGIST: [facility] Patient: Troy Mabry : 1985 Visit/Account:[id number] Date of Sevice: 05/14/2018 Computed tomograpy abdomen and pelvis with IV contrast Indication: Flank pain. History of renal stones. Comparison: 02/10/2018. Technique: Transaxial computed tomography images were obtained through the abdomen and pelvis follo wing the injection of nonionic iodinated intravenous contrast. Reformatted coronal and sagittal image s were also obtained. One of the following dose optimization techniques was utilized in the performance of this exam: Autom ated exposure control; adjustment of the mA and/or kV according to the patient's size; or use of an i terative reconstruction technique. Specific details can be referenced in the facility's radiology C T exam operational policy. Contrast: 75 ml of Isovue-370 IV contrast. Findings: Lower lung grissom: Limited views lower lung field are unremarkable. Liver: There is mild diffuse fatty liver. No focal parenchymal abnormality or intrahepatic biliary d ilatation is seen. Biliary: Gallbladder is borderline distended/hydropic measuring 9.9 cm in length. No calcified stone s. No definitive extrahepatic biliary dilatation is seen. Pancreas: There is extensive peripancreatic inflammatory stranding and ill-defined peripancreatic flu id within the retroperitoneum. There is mild heterogeneous enhancement of the head and uncinate proc ess which may be related to parenchymal edema. No ductal dilatation. Findings are compatible with a cute pancreatitis. Areas of suspected fluid attenuation are seen most pronounced about the tail exte nding about the transverse portion of the duodenum and along Gerota's fascia. Small amount of fluid extends about the gallbladder within the gallbladder fossa. Splenic vein is well opacified with cont rast as is the superior mesenteric vein and the portal vein. Spleen: Normal appearance. Adrenal glands: Unremarkable. Kidneys / retroperitoneum: There are are bilateral nonobstructing renal calculi identified. These ca lculi were seen on the previous noncontrast study. No ureteral dilatation or ureteral calculi. Bowel / peritoneum / mesenteries: No colonic wall thickening or pericolonic inflammatory changes are seen. There is some wall thickening of the transverse portion of the duodenum extending to the desce nding portion of the duodenum adjacent to the pancreatic inflammation. This is felt to represent sushil ctive wall thickening. No evidence for duodenal obstruction. No free pelvic fluid. Lymph node assessment: No pathologic adenopathy identified. Pelvic structures: Appear unremarkable. Vessels: No significant atherosclerotic calcifications seen throughout a nonaneurysmal abdominal aort a and branches. Musculoskeletal / Body wall: No acute or aggressive osseous abnormality. IMPRESSION: 1. CT findings consistent with acute pancreatitis with marked peripancreatic inflammation with ill-d efined areas of fluid attenuation as detailed above. 2. Gallbladder distention without calcified gallstones. 3. Mild fatty liver. 4. Wall thickening of the second and third portion of the duodenum which is felt to be reactive to t he peripancreatic inflammation. 5. Multiple nonobstructing bilateral renal calculi. Report Dictated By: Lyndon Eid at 05/14/2018 9:51 PM Report E-Signed By: Lyndon Eid at 05/14/2018 10:07 PM WSN:[email or web address]
--- NOTE | 2018-05-15 00:15 | RADIOLOGY IMAGING REPORT ---
FACILITY: [facility] - [place] PATIENT NAME: Troy Mabry : 1985 MR: [id number] V: [id number] EXAM DATE: ORDERING PHYSICIAN: MARIA G JANG TECHNOLOGIST: Location: [facility] Patient: Troy Mabry : 1985 Visit/Account:[id number] Date of Sevice: 05/14/2018 GALLBLADDER HISTORY: Pancreatitis. COMPARISON: None. FINDINGS: Pancreas: Echogenic and enlarged. No peripancreatic fluid collection or pseudocyst. There is mild adj acent edema. Upper abdominal aorta and IVC: Aorta and IVC are patent by color Doppler and are unremarkable. Mid ao rta is 1.6 cm in cross-section. Liver: Normal. The portal vein is patent with normal hepatopetal flow. Hepatic vein is patent. Gallbladder: No stones, wall thickening, or pericholecystic fluid. Negative sonographic Del Cid sign. Common duct: Normal, measuring 5 mm. Right kidney: Normal in size and echogenicity. It measures 10.7 x 4.5 x 6.3 cm. No hydronephrosis. Ascites: None. IMPRESSION: 1. Echogenic and enlarged pancreas with adjacent edema, compatible with pancreatitis. No pseudocyst. 2. Normal gallbladder. The remainder of the right upper quadrant ultrasound is also normal. Report Dictated By: Lottie Garcia at 05/15/2018 12:07 AM Report E-Signed By: Lottie Garcia at 05/15/2018 12:11 AM WSN:[id number]
[2018-05-15 01:00] VITALS: BP 144/86
[2018-05-15] MEDS ORDERED: ONDANSETRON 4 MG ODT TH SL ONE (01:15)
[2018-05-15] MEDS ORDERED: oxyCODONE/ACETAMIN 5/325MG TH 2 TAB/BOTTLE PO ONE (01:15)
[2018-05-15] MEDS ORDERED: OXYC-865 PO (01:16)
[2018-05-15] MEDS ORDERED: ONDA4TAB9 PO (01:16)
[2018-05-16] MEDS ORDERED: CITA-155 PO (19:36)
== END 2018-05-15 01:27 | disposition home or self-care (01) ==
LOC: ER 20:59
DX: K85.20 Alcohol induced acute pancreatitis without necrosis or infection (principal)
CPT/HCPCS: 74177; 76705; 81001; 82150; 83690; 85025; 96361; 96374; 96375; 96376; 99284; J1170; J2270; J2405; J7030; Q9967; S0119; 82040; 82247; 82310; 82374; 82435; 82565; 82947; 84075; 84132; 84155; 84295; 84450; 84460; 84520

== ENCOUNTER 2018-05-16 12:01 | Inpatient (IN) | payer SELFPAY ==
[~2018-05-16] VITALS: Ht 182.9 cm; Wt 89.4 kg
[~2018-05-16 12:01] MED LIST changes: +ONDA4TAB9 PO
[2018-05-16] MEDS ORDERED: ONDANSETRON 4 MG/2 ML VIAL IVP ONE (12:20)
[2018-05-16] MEDS ORDERED: NS(*) 0.9% 1000 ML BAG 1,000 ML IV ONE (12:20)
[2018-05-16] MEDS ORDERED: MORPHINE 4 MG/ML SDV IVP ONE (12:20)
[2018-05-16 12:31] LABS: PLATELET COUNT, AUTOMATED 234 K/uL (150-450)
--- NOTE | 2018-05-16 12:42 | ER Report ---
History and Physical Time Seen By MD: 12:10 Hx. of Stated Complaint: pt states he was here monday for pancreatitis, refused admission onto the medical floor at that time. states he is still having pain, unable to keep food down, having chills, and that he should have listened to the doctor on monday. HPI/ROS CHIEF COMPLAINT: Abdominal pain HISTORY OF PRESENT ILLNESS: 32-year-old male presents with what he says is his pancreatitis. He reportedly has never had this before this episode. He began having symptoms Monday evening and presented to the emergency department on Monday. At that time he was diagnosed with pancreatitis and declined admission attempting to manage at home. However, his pain has gradually increased and he vomits when trying to take by mouth so presents for hospital admission for worsening pain. Pain is 7 out of 10 and throughout the abdomen. It is worse with trying to take by mouth. He has been taking Percocet regularly since Monday, last 2 hours ago. He has not had a bowel movement since Monday but states he is passing gas. He does feel more distended. No blood in the vomit, no fevers, no sudden worsening of pain. Patient states that he was told pancreatitis was likely due to alcohol intake and he had been drinking 3-4 drinks for the past few months. He states he has now not had alcohol in nearly a week. REVIEW OF SYSTEMS: Constitutional: chills Eyes: No discharge. ENT: No sore throat. Cardiovascular: No chest pain, no palpitations. Respiratory: No cough, no shortness of breath. Gastrointestinal: above Genitourinary: no dysuria Musculoskeletal: No back pain. Skin: No rashes. Neurological: No headache. Remainder of the 14 system rev: Yes Allergies: Coded Allergies: No Known Drug Allergies (Unverified , 04/13/18) Home Meds Reported Medications Metoprolol Succinate (METOPROLOL SUCCINATE) 50 Mg Tab.er.24h, 2 TAB PO QDAY, TAB 05/14/18 Gabapentin (GABAPENTIN) 300 Mg Capsule, 300 MG PO TID, CAPSULE 04/13/18 Amlodipine Besylate (AMLODIPINE BESYLATE) 2.5 Mg Tablet, 1 TAB PO QDAY, #30 TAB 04/13/18 Discontinued Reported Medications Clindamycin Palmitate Hcl (CLINDAMYCIN PALMITATE HCL) 75 Mg/5 Ml Soln.recon, 150 MG PO Q6H, BOT 04/13/18 Discontinued Scripts Ondansetron (ONDANSETRON ODT) 4 Mg Tab.rapdis, 4 MG PO Q6H PRN for NAUSEA/VOMITING, #20 TAB 0 Refills Prov:MARIA G JANG MD 05/15/18 Oxycodone Hcl/Acetaminophen (PERCOCET 5-325 MG TABLET) 1 Each Tablet, 1 EACH PO Q4H PRN for PAIN, #12 TAB 0 Refills Prov:MARIA G JANG MD 05/15/18 Hydrocodone Bit/Acetaminophen (HYDROCODON-ACETAMINOPHEN 5-325) 1 Each Tablet, 1 EACH PO Q4-6H PRN for PAIN, #12 TAKE ONE TABLET BY MOUTH EVERY 4-6 HOURS NEEDED FOR PAIN Prov:MAXI BULLARD DO 04/13/18 Tramadol Hcl (TRAMADOL HCL) 50 Mg Tablet, 50 MG PO Q6H PRN for PAIN, #5 TAB 0 Refills Prov:CELSO PERSAUD DO 02/10/18 Reviewed Nurses Notes: Yes Hx Smoking: Yes Smoking Status: Current: Some Days Smoker Exposure to Second Hand Smoke?: Yes Hx Substance Use Disorder: No Hx Alcohol Use: Yes Constitutional Vital Sign - Last 24 Hours 05/16/18 12:07 Temp 98.9 Pulse 82 Resp 18 B/P (MAP) 143/80 Pulse Ox 98 O2 Delivery Room Air Physical Exam General Appearance: The patient is alert, has no immediate need for airway protection and no signs of toxicity. Eyes: Pupils equal and round no pallor or injection. ENT, Mouth: Mucous membranes are moist. Respiratory: There are no retractions, lungs are clear to auscultation. Cardiovascular: Regular rate and rhythm. Gastrointestinal: abdomen moderately distended, ttp throughout, dagoberto epigastric. Neurological: alert, oriented, nad Skin: Warm and dry, no rashes. Musculoskeletal: Extremities are nontender, nonswollen and have full range of motion. DIFFERENTIAL DIAGNOSIS: After history and physical exam differential diagnosis was considered for abdominal pain including but not limited to appendicitis, cholecystitis, gastritis and urinary tract infection, pancreatitis and complications, obstruction. Medical Decision Making Data Points Result Diagram: 05/16/18 1220 05/16/18 1220 Laboratory Hematology Test 05/16/18 12:05 05/16/18 12:20 Urine Color Yellow Urine Clarity Clear Urine pH 6.0 pH (4.8-9.5) Urine Specific Elmer 1.025 Urine Protein 30 mg/dL (NEGATIVE) Urine Glucose (UA) Negative mg/dL (NEGATIVE) Urine Ketones Negative mg/dL (NEGATIVE) Urine Blood Negative (NEGATIVE) Urine Nitrite Negative (NEGATIVE) Urine Bilirubin Negative (NEGATIVE) Urine Urobilinogen 4.0 mg/dL (0.2-1.9) Urine Leukocyte Esterase Negative (NEGATIVE) Urine RBC None /HPF (0-2/HPF) Urine WBC 1 /HPF (0-5/HPF) Urine Squamous Epithelial Cells Few /LPF (</=FEW) Urine Calcium Oxalate Crystals Few /HPF (NONE) Urine Bacteria Few /HPF (NONE-FEW) Urine Mucus Few /HPF (NONE-FEW) Red Blood Count 4.95 M/uL (4.00-5.60) Mean Corpuscular Volume 91.7 fL (80.0-96.0) Mean Corpuscular Hemoglobin 31.5 pg (26.0-33.0) Mean Corpuscular Hemoglobin Concent 34.4 g/dL (32.0-36.0) Red Cell Distribution Width 13.9 % (11.5-14.5) Mean Platelet Volume 7.8 fL (7.2-11.1) Neutrophils % (Manual) 83 % (39.4-72.5) Lymphocytes % (Manual) 6 % (17.6-49.6) Atypical Lymphocytes % 5 % Monocytes % (Manual) 2 % (4.1-12.4) Eosinophils % (Manual) 4 % (0.4-6.7) Basophils % (Manual) 0 % (0.3-1.4) Prothrombin Time 13.2 seconds (12.0-14.4) Prothromb Time International Ratio 1.00 Activated Partial Thromboplast Time 36 seconds (23-35) Sodium Level 137 mmol/L (137-145) Potassium Level 4.1 mmol/L (3.5-5.0) Chloride Level 104 mmol/L (98-107) Carbon Dioxide Level 27 mmol/L (22-30) Blood Urea Nitrogen 12 mg/dl (9-21) Creatinine 1.00 mg/dl (0.66-1.25) Glomerular Filtration Rate Calc > 60.0 Random Glucose 74 mg/dl (75-110) Calcium Level 9.1 mg/dl (8.4-10.2) Total Bilirubin 0.7 mg/dl (0.2-1.3) Aspartate Amino Transf (AST/SGOT) 28 U/L (0-35) Alanine Aminotransferase (ALT/SGPT) 27 U/L (0-56) Alkaline Phosphatase 59 U/L (0-126) Total Protein 7.6 g/dl (6.3-8.2) Albumin 3.9 g/dl (3.5-5.0) Lipase 3239 U/L (23-300) Chemistry Test 05/16/18 12:05 05/16/18 12:20 Urine Color Yellow Urine Clarity Clear Urine pH 6.0 pH (4.8-9.5) Urine Specific Elmer 1.025 Urine Protein 30 mg/dL (NEGATIVE) Urine Glucose (UA) Negative mg/dL (NEGATIVE) Urine Ketones Negative mg/dL (NEGATIVE) Urine Blood Negative (NEGATIVE) Urine Nitrite Negative (NEGATIVE) Urine Bilirubin Negative (NEGATIVE) Urine Urobilinogen 4.0 mg/dL (0.2-1.9) Urine Leukocyte Esterase Negative (NEGATIVE) Urine RBC None /HPF (0-2/HPF) Urine WBC 1 /HPF (0-5/HPF) Urine Squamous Epithelial Cells Few /LPF (</=FEW) Urine Calcium Oxalate Crystals Few /HPF (NONE) Urine Bacteria Few /HPF (NONE-FEW) Urine Mucus Few /HPF (NONE-FEW) White Blood Count 12.0 k/uL (4.5-11.0) Red Blood Count 4.95 M/uL (4.00-5.60) Hemoglobin 15.6 g/dL (14.0-18.0) Hematocrit 45.4 % (42.0-52.0) Mean Corpuscular Volume 91.7 fL (80.0-96.0) Mean Corpuscular Hemoglobin 31.5 pg (26.0-33.0) Mean Corpuscular Hemoglobin Concent 34.4 g/dL (32.0-36.0) Red Cell Distribution Width 13.9 % (11.5-14.5) Platelet Count 234 K/uL (150-450) Mean Platelet Volume 7.8 fL (7.2-11.1) Neutrophils % (Manual) 83 % (39.4-72.5) Lymphocytes % (Manual) 6 % (17.6-49.6) Atypical Lymphocytes % 5 % Monocytes % (Manual) 2 % (4.1-12.4) Eosinophils % (Manual) 4 % (0.4-6.7) Basophils % (Manual) 0 % (0.3-1.4) Prothrombin Time 13.2 seconds (12.0-14.4) Prothromb Time International Ratio 1.00 Activated Partial Thromboplast Time 36 seconds (23-35) Glomerular Filtration Rate Calc > 60.0 Calcium Level 9.1 mg/dl (8.4-10.2) Total Bilirubin 0.7 mg/dl (0.2-1.3) Aspartate Amino Transf (AST/SGOT) 28 U/L (0-35) Alanine Aminotransferase (ALT/SGPT) 27 U/L (0-56) Alkaline Phosphatase 59 U/L (0-126) Total Protein 7.6 g/dl (6.3-8.2) Albumin 3.9 g/dl (3.5-5.0) Lipase 3239 U/L (23-300) Coagulation Test 05/16/18 12:20 Prothrombin Time 13.2 seconds Prothromb Time International Ratio 1.00 Activated Partial Thromboplast Time 36 seconds Urinalysis Test 05/16/18 12:05 Urine Color Yellow Urine Clarity Clear Urine pH 6.0 pH (4.8-9.5) Urine Specific Elmer 1.025 Urine Protein 30 mg/dL (NEGATIVE) Urine Glucose (UA) Negative mg/dL (NEGATIVE) Urine Ketones Negative mg/dL (NEGATIVE) Urine Blood Negative (NEGATIVE) Urine Nitrite Negative (NEGATIVE) Urine Bilirubin Negative (NEGATIVE) Urine Urobilinogen 4.0 mg/dL (0.2-1.9) Urine Leukocyte Esterase Negative (NEGATIVE) Urine RBC None /HPF (0-2/HPF) Urine WBC 1 /HPF (0-5/HPF) Urine Squamous Epithelial Cells Few /LPF (</=FEW) Urine Calcium Oxalate Crystals Few /HPF (NONE) Urine Bacteria Few /HPF (NONE-FEW) Urine Mucus Few /HPF (NONE-FEW) ED Course/Re-evaluation ED Course Pt with recent dx of pancreatitis, returns as he failed outpt attempt. Now constipated but not obstructed (AAS without obstruction). HD stable, will admit for pain control, bowel rest. Decision to Disposition Date: May 16, 2018 Decision to Disposition Time: 13:47 Depart Departure Latest Vital Signs Vital Signs Date Time Temp Pulse Resp B/P (MAP) Pulse Ox O2 Delivery O2 Flow Rate FiO2 05/16/18 12:07 98.9 82 18 143/80 98 Room Air Impression: Primary Impression: Pancreatitis Condition: Condition Unchanged Disposition: Admitted from ER Problem Qualifiers Primary Impression: Pancreatitis Chronicity: acute Pancreatitis type: alcohol induced Acute pancreatitis complication: unspecified Qualified Codes: K85.20 - Alcohol induced acute pancreatitis without necrosis or infection JAISON ARORA MD May 16, 2018 12:42
[2018-05-16] MEDS ORDERED: HYDROMORPHONE HCL 1 MG/ML SYRINGE IVP ONE ×3 (13:00→14:30)
--- NOTE | 2018-05-16 13:49 | RADIOLOGY IMAGING REPORT ---
FACILITY: [facility] PATIENT NAME: Troy Mabry : 1985 MR: [id number] V: [id number] EXAM DATE: ORDERING PHYSICIAN: JAISON ARORA TECHNOLOGIST: Location: [facility] Patient: Troy Mabry : 1985 Visit/Account:[id number] Date of Sevice: 05/16/2018 Abdomen Series, 3 View HISTORY: Abdominal distention and epigastric pain. History of pancreatitis. COMPARISON: CT abdomen and pelvis 05/14/2018 FINDINGS: PA view of the chest Heart size is normal. Normal caliber aorta. Lungs are clear of infiltrate and atelectasis. No pneumo thorax or pleural effusion AP supine and upright views Average amount of bowel gas and solids in a nonobstructive pattern. The bilateral renal stones seen on recent CT abdomen are obscured by bowel content. No pneumoperitoneum. IMPRESSION: Negative abdomen x-ray for an acute chest or abdominal process. Report Dictated By: Lynda Stout MD at 05/16/2018 1:42 PM Report E-Signed By: Lynda Stout MD at 05/16/2018 1:45 PM WSN:[id number]
[2018-05-16 14:43] VITALS: BP 128/82
[2018-05-16] MEDS ORDERED: ONDANSETRON 4 MG/2 ML VIAL IVP PRN (15:20)
[2018-05-16] MEDS ORDERED: NALOXONE HCL 0.4 MG/ML VIAL IVP PRN (15:20)
--- NOTE | 2018-05-16 15:24 | History & Physical ---
History of Present Illness Chief Complaint Abdominal pain History of Present Illness This patient presented to the emergency room with abdominal pain and nausea. His symptoms started on Monday of this week. He did have several alcoholic beverages over the weekend. He went to the emergency room on Monday and opted to go home on a clear liquid diet. He tried to eat this morning, but had a relapse in his symptoms. History Problems: (1) Nephrolithiasis Status: Acute Home Meds Reported Medications Metoprolol Succinate (METOPROLOL SUCCINATE) 50 Mg Tab.er.24h, 2 TAB PO QDAY, TAB 05/14/18 Gabapentin (GABAPENTIN) 300 Mg Capsule, 300 MG PO TID, CAPSULE 04/13/18 Amlodipine Besylate (AMLODIPINE BESYLATE) 2.5 Mg Tablet, 1 TAB PO QDAY, #30 TAB 04/13/18 Discontinued Reported Medications Clindamycin Palmitate Hcl (CLINDAMYCIN PALMITATE HCL) 75 Mg/5 Ml Soln.recon, 150 MG PO Q6H, BOT 04/13/18 Discontinued Scripts Ondansetron (ONDANSETRON ODT) 4 Mg Tab.rapdis, 4 MG PO Q6H PRN for NAUSEA/VOMITING, #20 TAB 0 Refills Prov:MARIA G JANG MD 05/15/18 Oxycodone Hcl/Acetaminophen (PERCOCET 5-325 MG TABLET) 1 Each Tablet, 1 EACH PO Q4H PRN for PAIN, #12 TAB 0 Refills Prov:MARIA G JANG MD 05/15/18 Hydrocodone Bit/Acetaminophen (HYDROCODON-ACETAMINOPHEN 5-325) 1 Each Tablet, 1 EACH PO Q4-6H PRN for PAIN, #12 TAKE ONE TABLET BY MOUTH EVERY 4-6 HOURS NEEDED FOR PAIN Prov:MAXI BULLARD DO 04/13/18 Tramadol Hcl (TRAMADOL HCL) 50 Mg Tablet, 50 MG PO Q6H PRN for PAIN, #5 TAB 0 Refills Prov:CELSO PERSAUD DO 02/10/18 Allergies: Coded Allergies: No Known Drug Allergies (Unverified , 04/13/18) Patient History: FH: diabetes mellitus FATHER MOTHER High blood pressure FATHER MOTHER Hx Smoking: Yes Smoking Status: Current: Some Days Smoker Exposure to Second Hand Smoke?: No Hx Alcohol Use: Yes Alcohol Used: Beer, Liquor Hx Substance Use Disorder: No History of IV Drug Use: No Review of Systems All Systems Reviewed/Normal: Yes, Except as Noted Gastrointestinal: Nausea, Vomiting, Abdominal Pain Exam Vital Signs Vital Signs Date Time Temp Pulse Resp B/P (MAP) Pulse Ox O2 Delivery O2 Flow Rate FiO2 05/16/18 14:43 98.5 75 16 128/82 (97) 91 Room Air Neuro: No Gross deficits Eyes: PERRLA Cardiovascular: Regular Rate and Rhythm Respiratory: Clear to Auscultation GI: Other (Tenderness in epigastric region.) Extremities: No Edema Integumentary: No Jaundice, No Cyanosis Medical Decision Making Data Points Result Diagram: 05/16/18 1220 05/16/18 1220 Assessment and Plan Problems: (1) Acute pancreatitis Assessment & Plan: He did present with abdominal pain and vomiting. His lipase is elevated and a CT scan from his prior ER visit has shown findings consistent with pancreatitis. He has been made NPO and morphine INDUSTRIAL ECOLOGY TECHNICIAN is ordered for pain control. A repeat lipase is ordered for the morning. Venous Thromboembolism Antithrombotics Is Pt On Any Antithrombotics?: No Exam Sepsis Risk: No Definite Risk LEONIDES RUDD DO May 16, 2018 15:24
[2018-05-16] MEDS: MORPHINE 1 MG/ML 30 ML PCA IV PRN ×2 (15:36→21:57)
[2018-05-16] MEDS: NS(*) 0.9% 1000 ML BAG 1,000 ML IV PRN ×2 (15:37→21:57)
[2018-05-16 19:11] VITALS: BP 151/69
[2018-05-16] MEDS ORDERED: CITA-155 PO (19:36)
[2018-05-16] MEDS: PROMETHAZINE 25 MG/ML 1 ML AMP IVP PRN (21:57)
[2018-05-17 04:07] VITALS: BP 126/75
[2018-05-17] MEDS: NS(*) 0.9% 1000 ML BAG 1,000 ML IV PRN ×3 (04:27→18:13)
[2018-05-17 05:57] LABS: PLATELET COUNT, AUTOMATED 152 K/uL (150-450)
[2018-05-17 07:25] VITALS: BP 143/94
[2018-05-17] MEDS: MORPHINE 1 MG/ML 30 ML PCA IV PRN ×2 (09:58→18:33)
--- NOTE | 2018-05-17 09:58 | Hospitalist Progress Note ---
Subjective Progress Notes Subjective He reports some improvement in his pain. No N/V. Some appetite has returned. Physical Exam Vital Signs Date Time Temp Pulse Resp B/P (MAP) Pulse Ox O2 Delivery O2 Flow Rate FiO2 05/17/18 08:24 14 89 05/17/18 07:25 97.9 143/94 (110) Room Air 05/17/18 04:07 64 Intake and Output 05/17/18 06:59 Intake Total 950 ml Balance 950 ml Intake Oral 0 ml IV Total 950 ml # Voids 4 General Appearance: Alert, Awake Cardiovascular: Regular Rate and Rhythm Respiratory: Clear to Auscultation GI: Other (soft/BS present/no reported tenderness with palpation) Result Diagram: 05/17/18 0510 05/17/18 0510 Item Value Date Time Lipase 1606 U/L H 05/17/18 0510 Albumin 2.8 g/dl L 05/17/18 0510 Total Protein 5.5 g/dl L 05/17/18 0510 Alkaline Phosphatase 44 U/L 05/17/18 0510 Alanine Aminotransferase (ALT/SGPT) 27 U/L 05/17/18 0510 Aspartate Amino Transf (AST/SGOT) 18 U/L 05/17/18 0510 Total Bilirubin 0.4 mg/dl 05/17/18 0510 Calcium Level 7.9 mg/dl L 05/17/18 0510 Assessment and Plan Problems: (1) Acute pancreatitis Status: Acute Assessment & Plan: Most likely due to alcohol. Clinically improved. He did present with abdominal pain and vomiting. His lipase was elevated and a CT scan from his prior ER visit has shown findings consistent with acute pancreatitis. He was initially made NPO and morphine CATTLE DRIVER was ordered for pain control. Repeat lipase is improved (down to 1606) this morning. Will try ice chips today and if does well will advance diet tomorrow. Exam Sepsis Risk: No Definite Risk ABDIAS MOREL MD May 17, 2018 09:58
[2018-05-17 11:53] VITALS: BP 128/81
[2018-05-17 11:55] VITALS: BP 128/81
--- NOTE | 2018-05-17 12:50 | Medical Nutrition Therapy ---
Nutrition Anthropometrics Height (Inches): 72 (per previous admit) Weight (Pounds): 197 Weight (Calculated Kilograms): 89.414 Wei Nutrition Score: Adequate Wei Nutrition Risk Score: 21 Dietary Referral Nutrition Risk Factors: Nutrition Risk Comment: Physical Findings Physical Appearance: Overweight BMI 25-29 Skin Appearance Skin Appearance: Edema Edema Location Modifier: Edema Location: Type of Edema: Degree of Edema: Gastrointestinal Symptoms GI Symtoms: Nausea Tube Present: Bowel Sounds: Recent Bowel Pattern: Stool Characteristics: Nutritional Diagnosis Nutritional Risk Acuity 2: Pancreatitis Nutritional Risk Acuity 3: Nausea, Alcohol abuse Past Medical History: nephrolithiasis Nutritional Acuity: 2-Moderate Nutrition Diagnosis: Altered GI Function Nutrition Etiology: Physiological Causes Nutrition Problem/Etiology/Sym: Altered GI function related to physiological causes as evidenced by abdominal pain, acute pancreatitis and lipase ranging between 1255-6787. Energy Requirement: 2580 (0939-8830 (HB x 1.3-1.4)) Protein Requirement: 89 (89-97 (1-1.1 g/kg)) Fluid Requirement: 2225 Diet Type: NPO (Nothing by Mouth) Nutrition Intervention: Incr diet as tolerated Nutrition Monitoring & Eval RD Patient Assessment Time: [address] Assessment Type: RD Assessment Patient Nutrition Acuity: 2-Moderate Follow Up Date: May 21, 2018 Nutritional Comment: 05/17 Pt admitted with abdominal pain and N/V and will be treated for acute pancreatitis. PMH of nephrolithiasis. Currently NPO but will likely be advanced tomorrow. Notable labs include low H/H, BUN 6, tot pro 5.5, alb 2.8 and lipase still elevated but decreased from 3257-3957. Will cont to monitor clinical progress and diet advancement.-BEE DAVIES May 17, 2018 12:50
[2018-05-17 21:09] VITALS: BP 137/81
[2018-05-17] MEDS: PROMETHAZINE 25 MG/ML 1 ML AMP IVP PRN (21:10)
[2018-05-18] MEDS: NS(*) 0.9% 1000 ML BAG 1,000 ML IV PRN ×3 (00:52→14:22)
[2018-05-18] MEDS: PROMETHAZINE 25 MG/ML 1 ML AMP IVP PRN ×3 (03:28→21:06)
[2018-05-18] MEDS: MORPHINE 1 MG/ML 30 ML PCA IV PRN ×2 (03:28→15:53)
[2018-05-18 06:15] LABS: PLATELET COUNT, AUTOMATED 150 K/uL (150-450)
[2018-05-18 08:55] VITALS: BP 145/86
[2018-05-18] MEDS ORDERED: INFLUENZA VIRUS VAC 0.5ML SYR IM ONLY ONE (09:00)
--- NOTE | 2018-05-18 09:03 | Hospitalist Progress Note ---
Subjective Progress Notes Subjective This patient was admitted for pancreatitis. He had no acute events overnight. Patient Complains of: Cardiovascular: No: Chest Pain Respiratory: No: Shortness of Breath Gastrointestinal: Nausea Physical Exam Vital Signs Date Time Temp Pulse Resp B/P (MAP) Pulse Ox O2 Delivery O2 Flow Rate FiO2 05/18/18 08:55 97.4 72 16 145/86 (105) 96 Room Air Intake and Output 05/18/18 06:59 Intake Total 1000 ml Balance 1000 ml IV Total 1000 ml # Voids 3 Cardiovascular: Regular Rate and Rhythm Respiratory: Clear to Auscultation GI: Other (Mild epigastric pain.) Result Diagram: 05/18/1851905/18/18519 Item Value Date Time Lipase 940 U/L H 05/18/18519 Assessment and Plan Problems: (1) Acute pancreatitis Status: Acute Assessment & Plan: He did present with abdominal pain and vomiting. His lipase was elevated and a CT scan from his prior ER visit has shown findings consistent with acute pancreatitis. He was initially made NPO and morphine PULLER MACHINE was ordered for pain control. His lipase is trending down, but still elevated. He is currently on ice chips only. We will continue to hold his diet through today. A repeat lipase is ordered for the morning. Exam Sepsis Risk: No Definite Risk LEONIDES RUDD DO May 18, 2018 09:03
[2018-05-18 11:02] VITALS: BP 147/94
[2018-05-18 15:50] VITALS: BP 146/84
[2018-05-18 19:29] VITALS: BP 137/78
[2018-05-19] MEDS ORDERED: PCA LOCKBOX KEYS XX ONE (00:56)
[2018-05-19] MEDS: MORPHINE 1 MG/ML 30 ML PCA IV PRN (01:03)
[2018-05-19 01:07] VITALS: BP 132/81
[2018-05-19] MEDS: PROMETHAZINE 25 MG/ML 1 ML AMP IVP PRN ×2 (02:19→10:20)
[2018-05-19] MEDS: NS(*) 0.9% 1000 ML BAG 1,000 ML IV PRN ×3 (03:44→18:08)
[2018-05-19 08:06] VITALS: BP 134/89
[2018-05-19] MEDS: HYDROmorphone HCL 2 MG/ML SDV IVP PRN ×5 (09:24→22:35)
--- NOTE | 2018-05-19 10:38 | Hospitalist Progress Note ---
Subjective Progress Notes Subjective 32M admitted for pancreatitis 2/2 EtOH. OLIVA overnight, wants to attempt to advance diet today. Patient Complains of: Gastrointestinal: Nausea; No Vomiting Physical Exam Vital Signs Date Time Temp Pulse Resp B/P (MAP) Pulse Ox O2 Delivery O2 Flow Rate FiO2 05/19/18 08:21 94 05/19/18 08:06 97.5 61 12 134/89 (104) Room Air Intake and Output 05/19/18 06:59 # Voids 5 General Appearance: Alert, Awake, No Acute Distress, Afebrile Neuro: No Gross deficits Eyes: PERRLA ENT: Normal Cardiovascular: Normal Rhythm & Peripheral Pulses Respiratory: No Respiratory Distress GI: Other (epigastric tenderness and pain) Musculoskeletal: No Weakness/Pain Extremities: Soft and Non Tender, Warm, Pulses, Perfused; No Edema Psych: Alert & Oriented X3 Result Diagram: 05/18/18 0520 05/19/18 0600 Assessment and Plan Problems: (1) Acute pancreatitis Status: Acute Assessment & Plan: He did present with abdominal pain and vomiting. His lipase was elevated and a CT scan from his prior ER visit has shown findings consistent with acute pancreatitis. He was initially made NPO and morphine FERRY TERMINAL AGENT was ordered for pain control. Advance to clears, will stop FERRY TERMINAL AGENT and use PRN Dilaudid. If tolerating PO consider change to PO pain medication. Exam Sepsis Risk: No Definite Risk FRAUSTO ATNNA HUBBARD DO May 19, 2018 10:38
[2018-05-19 11:08] VITALS: BP 147/100
[2018-05-19] MEDS: oxyCODONE HCL 5 MG CAP PO PRN (17:42)
[2018-05-19 18:51] VITALS: BP 115/71
[2018-05-19 22:38] VITALS: BP 158/90
[2018-05-20] MEDS ORDERED: oxyCODONE HCL 5 MG CAP PO SCH ×2
[2018-05-20] MEDS: NS(*) 0.9% 1000 ML BAG 1,000 ML IV PRN (00:50)
[2018-05-20] MEDS: PROMETHAZINE 25 MG/ML 1 ML AMP IVP PRN ×2 (00:51→12:28)
[2018-05-20] MEDS: oxyCODONE HCL 5 MG CAP PO PRN ×2 (00:51→08:21)
[2018-05-20 02:14] VITALS: BP 152/90
[2018-05-20] MEDS: HYDROmorphone HCL 2 MG/ML SDV IVP PRN (05:19)
[2018-05-20 07:32] VITALS: BP 136/80
--- NOTE | 2018-05-20 08:24 | Hospitalist Progress Note ---
Subjective Progress Notes Subjective He reports some ongoing abdominal discomfort, but states it seems to be improved each day. No fever. Appetite improving. Physical Exam Vital Signs Date Time Temp Pulse Resp B/P (MAP) Pulse Ox O2 Delivery O2 Flow Rate FiO2 05/20/18 07:32 97.4 64 16 136/80 (98) Room Air 05/20/18 02:14 93 Intake and Output 05/20/18 06:59 Intake Total 1800 ml Balance 1800 ml Intake Oral 800 ml IV Total 1000 ml # Voids 1 General Appearance: Alert, Awake Cardiovascular: Regular Rate and Rhythm Respiratory: Clear to Auscultation GI: Soft and Non-Tender (BS present) Psych: Alert & Oriented X3 Result Diagram: 05/18/18 0520 05/19/18 0600 Assessment and Plan Problems: (1) Acute pancreatitis Status: Acute Assessment & Plan: He did present with abdominal pain and vomiting. His lipase was elevated and a CT scan from his prior ER visit has shown findings consistent with acute pancreatitis. He was initially made NPO and morphine MARSHMALLOW MAKER was ordered for pain control. We have been advancing his diet slowly. Will try to transition to oral medications. If labs continue to improve and he is tolerating oral intake, he may be able to discharge soon. Exam Sepsis Risk: No Definite Risk ABDIAS MOREL MD May 20, 2018 08:24
[2018-05-20 11:33] VITALS: BP 132/86
[2018-05-20] MEDS ORDERED: NS(*) 0.9% 1000 ML BAG 1,000 ML IV PRN (11:50)
[2018-05-20] MEDS ORDERED: HYDROmorphone PCA 6 MG/30 ML IV PRN (11:55)
[2018-05-20] MEDS ORDERED: PCA LOCKBOX KEYS XX ONE (12:12)
--- NOTE | 2018-05-20 15:12 | RADIOLOGY IMAGING REPORT ---
FACILITY: [facility] [place] PATIENT NAME: Troy Mabry : 1985 MR: [id number] V: [id number] EXAM DATE: ORDERING PHYSICIAN: ABDIAS MOREL TECHNOLOGIST: [place] [facility] [place]: Troy Mabry : 1985 Visit/Account:[id number] Date of Sevice: 05/20/2018 CT abdomen and pelvis without contrast Indication: Pancreatitis. Persistent pain. Comparison: 05/14/2018. Technique: Axial CT images are obtained through the abdomen and pelvis. Reformatted coronal and sagit migel images were reviewed. IV contrast was not administered. One of the following dose optimization techniques was utilized in the performance of this exam: auto mated exposure control; adjustment of the mA and/or kV according to the patient's size; or use of an iterative reconstruction technique. Specific details can be referenced in the facility's radiology C T exam operational policy. Findings: Lower lung grissom: Mild scarring, otherwise clear. Evaluation of the solid organs of the abdomen is limited without IV contrast. Liver: No focal parenchymal abnormality of the liver. Biliary: Gallbladder appears unremarkable as well as the intra and extra hepatic biliary system. Pancreas: Significant amount of improvement in the previous acute pancreatitis. There is mild residua l peripancreatic inflammatory changes. The pancreas shows no focal abnormality. No fluid collections. Spleen: Normal appearance. Adrenal glands: Unremarkable. Kidneys / retroperitoneum: Both kidneys again show several 2 mm stones in the collecting system witho ut hydronephrosis. No discrete renal lesion. Bowel / peritoneum / mesenteries: The visualized gastrointestinal tract, including the appendix, with in normal limits. The stomach is unremarkable. No free air, free fluid, fluid collections or other areas of inflammation. Tiny umbilical hernia cont aining fat. Lymph node assessment: No pathologic adenopathy identified. Pelvic structures: Appear unremarkable. Vessels: No significant atherosclerotic calcifications seen throughout a nonaneurysmal abdominal aort a and branches. Musculoskeletal / Body wall: No acute or aggressive osseous abnormality. IMPRESSION: 1. Significant improvement from the previous pancreatitis. There is mild residual peripancreatic infl ammation. No fluid collections. The pancreas shows no focal abnormality. 2. Continued bilateral nonobstructing renal calculi. Report Dictated By: Saran Castellon at 05/20/2018 3:01 PM Report E-Signed By: Saran Castellon at 05/20/2018 3:09 PM WSN:[id number]
[2018-05-20] MEDS ORDERED: OXYC5TAB38 PO (15:52)
--- NOTE | 2018-05-20 16:02 | Hospitalist Depart ---
Discharge Summary Reason for Hosp/Final Diag: (1) Acute pancreatitis Status: Acute Hospital Course & Plan: Most likely secondary to alcohol. He did present with abdominal pain and vomiting. His lipase was elevated and a CT scan from his prior ER visit has shown findings consistent with acute pancreatitis. He was initially made NPO and morphine HAND CLIPPER was ordered for pain control. His lipase was improving throughout his stay. We did advance his diet slowly and tried to transition to oral medications. He did, however, have some lingering pain. A repeat CT scan showed significant improvement/resolution of the inflammatory changes without any fluid collections or other worrisome findings. His pain resolved after he was able to have a bowel movement. He was felt to be stable and ready for discharge. He will follow up with a primary care provider of his choice in the next 1-2 weeks or sooner if any problems. We discussed the association of alcohol and acute pancreatitis and he understands very well. He stated "I think I am done with it now". Departure Weight (Pounds): 197 Weight (Ounces): 2.0 Result Diagram: 05/18/18 0520 05/19/18 0600 Item Value Date Time White Blood Count 12.0 k/uL H 05/16/18 1220 Hemoglobin 15.6 g/dL 05/16/18 1220 Hematocrit 45.4 % 05/16/18 1220 Platelet Count 234 K/uL 05/16/18 1220 Prothrombin Time 13.2 seconds 05/16/18 1220 Prothromb Time International Ratio 1.00 05/16/18 1220 Activated Partial Thromboplast Time 36 seconds H 05/16/18 1220 Sodium Level 137 mmol/L 05/16/18 1220 Potassium Level 4.1 mmol/L 05/16/18 1220 Chloride Level 104 mmol/L 05/16/18 1220 Carbon Dioxide Level 27 mmol/L 05/16/18 1220 Blood Urea Nitrogen 12 mg/dl 05/16/18 1220 Creatinine 1.00 mg/dl 05/16/18 1220 Glomerular Filtration Rate Calc > 60.0 05/16/18 1220 Random Glucose 74 mg/dl L 05/16/18 1220 Calcium Level 9.1 mg/dl 05/16/18 1220 Total Bilirubin 0.7 mg/dl 05/16/18 1220 Aspartate Amino Transf (AST/SGOT) 28 U/L 05/16/18 1220 Alanine Aminotransferase (ALT/SGPT) 27 U/L 05/16/18 1220 Alkaline Phosphatase 59 U/L 05/16/18 1220 Total Protein 7.6 g/dl 05/16/18 1220 Albumin 3.9 g/dl 05/16/18 1220 Lipase 3239 U/L H 05/16/18 1220 Lipase 1606 U/L H 05/17/18 0510 Lipase 940 U/L H 05/18/18 0520 Lipase 877 U/L H 05/19/18 0600 Lipase 719 U/L H 05/20/18 0813 Albumin 3.0 g/dl L 05/19/18 0600 Total Protein 6.0 g/dl L 05/19/18 0600 Alkaline Phosphatase 49 U/L 05/19/18 0600 Alanine Aminotransferase (ALT/SGPT) 20 U/L 05/19/18 0600 Aspartate Amino Transf (AST/SGOT) 20 U/L 05/19/18 0600 Total Bilirubin 0.2 mg/dl 05/19/18 0600 Calcium Level 8.5 mg/dl 05/19/18 0600 Urine Color Yellow 05/16/18 1205 Urine Clarity Clear 05/16/18 1205 Urine pH 6.0 pH 05/16/18 1205 Urine Specific [place] 1.025 05/16/18 1205 Urine Protein 30 mg/dL 05/16/18 1205 Urine Glucose (UA) Negative mg/dL 05/16/18 1205 Urine Ketones Negative mg/dL 05/16/18 1205 Urine Blood Negative 05/16/18 1205 Urine Nitrite Negative 05/16/18 1205 Urine Bilirubin Negative 05/16/18 1205 Urine Urobilinogen 4.0 mg/dL H 05/16/18 1205 Urine Leukocyte Esterase Negative 05/16/18 1205 Urine RBC None /HPF 05/16/18 1205 Urine WBC 1 /HPF 05/16/18 1205 Urine Squamous Epithelial Cells Few /LPF 05/16/18 1205 Urine Calcium Oxalate Crystals Few /HPF H 05/16/18 1205 Urine Bacteria Few /HPF 05/16/18 1205 Urine Mucus Few /HPF 05/16/18 1205 Imaging PATIENT NAME: Troy Mabry : 1985 MR: [id number] V: [id number] EXAM DATE: [id number] ORDERING PHYSICIAN: JAISON ARORA TECHNOLOGIST: Location: [facility] - [place] Patient: Troy Mabry : 1985 Visit/Account:[id number] Date of Sevice: 05/16/2018 Abdomen Series, 3 View HISTORY: Abdominal distention and epigastric pain. History of pancreatitis. COMPARISON: CT abdomen and pelvis 05/14/2018 FINDINGS: PA view of the chest Heart size is normal. Normal caliber aorta. Lungs are clear of infiltrate and atelectasis. No pneumothorax or pleural effusion AP supine and upright views Average amount of bowel gas and solids in a nonobstructive pattern. The bilateral renal stones seen on recent CT abdomen are obscured by bowel content. No pneumoperitoneum. IMPRESSION: Negative abdomen x-ray for an acute chest or abdominal process. Report Dictated By: Lynda Stout MD at 05/16/2018 1:42 PM Report E-Signed By: Lynda Stout MD at 05/16/2018 1:45 PM WSN:[id number] PATIENT NAME: Troy Mabry : 1985 MR: [id number] V: [id number] EXAM DATE: [id number] ORDERING PHYSICIAN: ABDIAS MOREL TECHNOLOGIST: Location: [facility] [place] Patient: Troy Mabry : 1985 Visit/Account:[id number] Date of Sevice: 05/20/2018 CT abdomen and pelvis without contrast Indication: Pancreatitis. Persistent pain. Comparison: 05/14/2018. Technique: Axial CT images are obtained through the abdomen and pelvis. Reformatted coronal and sagittal images were reviewed. IV contrast was not administered. One of the following dose optimization techniques was utilized in the performance of this exam: automated exposure control; adjustment of the mA and/or kV according to the patient's size; or use of an iterative reconstruction technique. Specific details can be referenced in the facility's radiology CT exam operational policy. Findings: Lower lung grissom: Mild scarring, otherwise clear. Evaluation of the solid organs of the abdomen is limited without IV contrast. Liver: No focal parenchymal abnormality of the liver. Biliary: Gallbladder appears unremarkable as well as the intra and extra hepatic biliary system. Pancreas: Significant amount of improvement in the previous acute pancreatitis. There is mild residual peripancreatic inflammatory changes. The pancreas shows no focal abnormality. No fluid collections. Spleen: Normal appearance. Adrenal glands: Unremarkable. Kidneys / retroperitoneum: Both kidneys again show several 2 mm stones in the collecting system without hydronephrosis. No discrete renal lesion. Bowel / peritoneum / mesenteries: The visualized gastrointestinal tract, including the appendix, within normal limits. The stomach is unremarkable. No free air, free fluid, fluid collections or other areas of inflammation. Tiny umbilical hernia containing fat. Lymph node assessment: No pathologic adenopathy identified. Pelvic structures: Appear unremarkable. Vessels: No significant atherosclerotic calcifications seen throughout a nonaneurysmal abdominal aorta and branches. Musculoskeletal / Body wall: No acute or aggressive osseous abnormality. IMPRESSION: 1. Significant improvement from the previous pancreatitis. There is mild residual peripancreatic inflammation. No fluid collections. The pancreas shows no focal abnormality. 2. Continued bilateral nonobstructing renal calculi. Report Dictated By: Saran Castellon at 05/20/2018 3:01 PM Report E-Signed By: Saran Castellon at 05/20/2018 3:09 PM WSN:[id number] Condition: Improved Discharge: Home, Self Care Time Spent: > 30 min Discharge Instructions Home Meds Active Scripts Oxycodone Hcl (OXYCODONE HCL) 5 Mg Tablet, 5 MG PO Q6H PRN for PAIN, #10 TAB 0 Refills Prov:ABDIAS MOREL MD 05/20/18 Reported Medications Citalopram Hydrobromide (CELEXA) 10 Mg Tablet, 10 MG PO QDAY, #5 TAB 05/16/18 Gabapentin (GABAPENTIN) 300 Mg Capsule, 300 MG PO TID, CAPSULE 04/13/18 Discontinued Reported Medications Metoprolol Succinate (METOPROLOL SUCCINATE) 50 Mg Tab.er.24h, 2 TAB PO QDAY, TAB 05/14/18 Amlodipine Besylate (AMLODIPINE BESYLATE) 2.5 Mg Tablet, 1 TAB PO QDAY, #30 TAB 04/13/18 Clindamycin Palmitate Hcl (CLINDAMYCIN PALMITATE HCL) 75 Mg/5 Ml Soln.recon, 150 MG PO Q6H, BOT 04/13/18 Discontinued Scripts Ondansetron (ONDANSETRON ODT) 4 Mg Tab.rapdis, 4 MG PO Q6H PRN for NAUSEA/VOMITING, #20 TAB 0 Refills Prov:MARIA G JANG MD 05/15/18 Oxycodone Hcl/Acetaminophen (PERCOCET 5-325 MG TABLET) 1 Each Tablet, 1 EACH PO Q4H PRN for PAIN, #12 TAB 0 Refills Prov:MARIA G JANG MD 05/15/18 Hydrocodone Bit/Acetaminophen (HYDROCODON-ACETAMINOPHEN 5-325) 1 Each Tablet, 1 EACH PO Q4-6H PRN for PAIN, #12 TAKE ONE TABLET BY MOUTH EVERY 4-6 HOURS NEEDED FOR PAIN Prov:MAXI BULLARD DO 04/13/18 Tramadol Hcl (TRAMADOL HCL) 50 Mg Tablet, 50 MG PO Q6H PRN for PAIN, #5 TAB 0 Refills Prov:CELSO PERSAUD DO 02/10/18 Diet: Low Fat (No alcohol.) Activity: As Tolerated Special Instructions: Follow up with primary care provider of your choice in next 1-2 weeks or sooner if any problems. Return to [facility] ER if any problems. Venous Thromboembolism Antithrombotics Is Pt On Any Antithrombotics?: No ABDIAS MOREL MD May 20, 2018 16:02
[2018-05-20] MEDS ORDERED: oxyCODONE HCL 5 MG CAP PO PRN ×2 (16:25→16:50)
== END 2018-05-20 17:05 | disposition home or self-care (01) | DRG 440 ==
LOC: ER 12:17 → MED 14:13
PROVIDERS: ADMIT Family Medicine; ATTEND Family Medicine
DX: K85.20 Alcohol induced acute pancreatitis without necrosis or infection (principal); N20.0 Calculus of kidney
CPT/HCPCS: 36415; 74022; 74176; 81001; 82040; 82247; 82310; 82374; 82435; 82565; 82947; 83690; 84075; 84132; 84155; 84295; 84450; 84460; 84520; 85007; 85025; 85027; 85610; 85730; 96361; 96374; 96375; 96376; 99284; J1170; J2270; J2405; J2550; J7030

== ENCOUNTER 2018-09-25 23:14 | Emergency (ER) | payer SELFPAY ==
[~2018-09-25 23:14] MED LIST changes: -AMLO2.5T76 PO; +AMLO2.5T78 PO; +CITA-155 PO; +METR500T15 PO; -METR500T54 PO; +OXYC5TAB38 PO
[2018-09-26] MEDS ORDERED: MORPHINE 4 MG/ML SDV IVP ONE
[2018-09-26] MEDS ORDERED: ONDANSETRON 4 MG/2 ML VIAL IVP ONE
--- NOTE | 2018-09-26 00:05 | ER Report ---
History and Physical Time Seen By MD: 23:50 Hx. of Stated Complaint: pain around middle of abdomen and both flanks that started a couple days ago. long history of kidney stones HPI/ROS CHIEF COMPLAINT: Abdominal pain HISTORY OF PRESENT ILLNESS: 33-year-old male presents with abdominal pain 2 days. Patient states it is constant though fluctuating. Patient states it is sharp and severe. Patient states that pain radiates across abdomen bilaterally and is now settled more on the right side. Patient states it similar to his prior pancreatitis as well as prior kidney stones. Patient has been nauseous and vomited twice with food today. He has nonbloody nonbilious vomiting. His last bowel movement was yesterday and was normal. He has not had diarrhea. He does note that his urine is darker than normal. He was last admitted for similar in April and found to have pancreatitis, and states symptoms feel like this. He uses tobacco daily, admits to 2 drinks today, though states he does not drink daily, and denies drugs. His not taking any medication for pain or nausea. REVIEW OF SYSTEMS: Constitutional: No fever, no chills. Eyes: no blurred vision ENT: No sore throat. Cardiovascular: No chest pain, no palpitations. Respiratory: No cough, no shortness of breath. Gastrointestinal: above Genitourinary: above Musculoskeletal: radiates to bilateral flanks Skin: No rashes. Neurological: No headache. Remainder of the 14 system rev: Yes Allergies: Coded Allergies: No Known Drug Allergies (Unverified , 09/25/18) Home Meds Reported Medications Citalopram Hydrobromide (CELEXA) 10 Mg Tablet, 10 MG PO QDAY, #5 TAB 05/16/18 Gabapentin (GABAPENTIN) 300 Mg Capsule, 300 MG PO TID, CAPSULE 04/13/18 Discontinued Scripts Oxycodone Hcl (OXYCODONE HCL) 5 Mg Tablet, 5 MG PO Q6H PRN for PAIN, #10 TAB 0 Refills Prov:ABDIAS MOREL MD 05/20/18 Reviewed Nurses Notes: Yes Old Medical Records Reviewed: Yes Hx Smoking: Yes Smoking Status: Current: Some Days Smoker Exposure to Second Hand Smoke?: No Hx Substance Use Disorder: No Hx Alcohol Use: Yes Constitutional Vital Sign - Last 24 Hours 09/25/18 09/25/18 09/25/18 09/25/18 23:14 23:20 23:21 23:29 Temp 98.7 Pulse ??? 96 89 Resp 12 B/P (MAP) 157/111 157/111 (126) Pulse Ox 95 93 O2 Delivery Room Air 09/25/18 09/25/18 09/26/18 09/26/18 23:30 23:44 00:00 00:29 Pulse 79 82 B/P (MAP) 148/99 (115) 135/98 (110) Pulse Ox 93 89 09/26/18 09/26/18 09/26/18 09/26/18 00:30 00:44 01:00 01:05 Pulse 75 73 B/P (MAP) 131/91 (104) 123/74 (90) Pulse Ox 91 90 09/26/18 09/26/18 09/26/18 09/26/18 01:20 01:27 01:30 01:35 Pulse ??? 74 B/P (MAP) 135/85 (102) 131/81 (98) Pulse Ox 91 09/26/18 09/26/18 09/26/18 09/26/18 01:50 01:55 02:00 02:10 Pulse 75 71 79 B/P (MAP) 126/84 (98) Pulse Ox 93 91 90 Physical Exam General Appearance: The patient is alert, has no immediate need for airway protection and no signs of toxicity. Eyes: Pupils equal and round no pallor or injection. ENT, Mouth: Mucous membranes are moist. Respiratory: There are no retractions, lungs are clear to auscultation. Cardiovascular: Regular rate and rhythm. no m/r/g Gastrointestinal: pt has RLQ ttp. Abd is flat, non distended. Nl BS. He does not have epigastric ttp. Neurological: alert, oriented, no focal deficits. Pt smells of alcohol. Skin: Warm and dry, no rashes. Musculoskeletal: Extremities are nontender, nonswollen and have full range of motion. DIFFERENTIAL DIAGNOSIS: After history and physical exam differential diagnosis was considered for abdominal pain including but not limited to appendicitis, cholecystitis, gastritis and urinary tract infection, pancreatitis. Medical Decision Making Data Points Result Diagram: 09/26/18 0000 09/26/18 0000 Laboratory Hematology Test 09/26/18 00:00 09/26/18 00:23 Red Blood Count 5.52 M/uL (4.00-5.60) Mean Corpuscular Volume 90.7 fL (80.0-96.0) Mean Corpuscular Hemoglobin 31.4 pg (26.0-33.0) Mean Corpuscular Hemoglobin Concent 34.6 g/dL (32.0-36.0) Red Cell Distribution Width 13.8 % (11.5-14.5) Mean Platelet Volume 8.3 fL (7.2-11.1) Neutrophils (%) (Auto) 56.5 % (39.4-72.5) Lymphocytes (%) (Auto) 31.1 % (17.6-49.6) Monocytes (%) (Auto) 9.6 % (4.1-12.4) Eosinophils (%) (Auto) 1.7 % (0.4-6.7) Basophils (%) (Auto) 1.1 % (0.3-1.4) Nucleated RBC Relative Count (auto) 0.1 /100WBC Neutrophils # (Auto) 4.3 K/uL (2.0-7.4) Lymphocytes # (Auto) 2.4 K/uL (1.3-3.6) Monocytes # (Auto) 0.7 K/uL (0.3-1.0) Eosinophils # (Auto) 0.1 K/uL (0.0-0.5) Basophils # (Auto) 0.1 K/uL (0.0-0.1) Nucleated RBC Absolute Count (auto) 0.00 K/uL Urine Color Straw Urine Clarity Clear Urine pH 6.0 pH (4.8-9.5) Urine Specific [place] 1.004 Urine Protein Negative mg/dL (NEGATIVE) Urine Glucose (UA) Negative mg/dL (NEGATIVE) Urine Ketones Negative mg/dL (NEGATIVE) Urine Blood Negative (NEGATIVE) Urine Nitrite Negative (NEGATIVE) Urine Bilirubin Negative (NEGATIVE) Urine Urobilinogen Negative mg/dL (0.2-1.9) Urine Leukocyte Esterase Negative (NEGATIVE) Urine RBC None /HPF (0-2/HPF) Urine WBC 2 /HPF (0-5/HPF) Urine Squamous Epithelial Cells None /LPF (</=FEW) Urine Bacteria Negative /HPF (NONE-FEW) Urine Mucus None /HPF (NONE-FEW) Sodium Level 142 mmol/L (137-145) Potassium Level 3.5 mmol/L (3.5-5.0) Chloride Level 106 mmol/L (98-107) Carbon Dioxide Level 22 mmol/L (22-30) Blood Urea Nitrogen 12 mg/dl (9-21) Creatinine 0.90 mg/dl (0.66-1.25) Glomerular Filtration Rate Calc > 60.0 Random Glucose 99 mg/dl (75-110) Calcium Level 8.9 mg/dl (8.4-10.2) Magnesium Level 2.1 mg/dl (1.7-2.2) Total Bilirubin 0.4 mg/dl (0.2-1.3) Aspartate Amino Transf (AST/SGOT) 28 U/L (0-35) Alanine Aminotransferase (ALT/SGPT) 26 U/L (0-56) Alkaline Phosphatase 62 U/L (0-126) Total Protein 7.5 g/dl (6.3-8.2) Albumin 4.5 g/dl (3.5-5.0) Lipase 111 U/L (23-300) Urine Opiates Screen Positive Urine Barbiturates Screen Negative Ur Tricyclic Antidepressants Screen Negative Urine Phencyclidine Screen Negative Urine Amphetamines Screen Negative Urine Benzodiazepines Screen Negative Urine Cocaine Screen Negative Urine Cannabinoids Screen Negative Serum Alcohol 192 mg/dl Chemistry Test 09/26/18 00:00 09/26/18 00:23 White Blood Count 7.6 k/uL (4.5-11.0) Red Blood Count 5.52 M/uL (4.00-5.60) Hemoglobin 17.3 g/dL (14.0-18.0) Hematocrit 50.1 % (42.0-52.0) Mean Corpuscular Volume 90.7 fL (80.0-96.0) Mean Corpuscular Hemoglobin 31.4 pg (26.0-33.0) Mean Corpuscular Hemoglobin Concent 34.6 g/dL (32.0-36.0) Red Cell Distribution Width 13.8 % (11.5-14.5) Platelet Count 243 K/uL (150-450) Mean Platelet Volume 8.3 fL (7.2-11.1) Neutrophils (%) (Auto) 56.5 % (39.4-72.5) Lymphocytes (%) (Auto) 31.1 % (17.6-49.6) Monocytes (%) (Auto) 9.6 % (4.1-12.4) Eosinophils (%) (Auto) 1.7 % (0.4-6.7) Basophils (%) (Auto) 1.1 % (0.3-1.4) Nucleated RBC Relative Count (auto) 0.1 /100WBC Neutrophils # (Auto) 4.3 K/uL (2.0-7.4) Lymphocytes # (Auto) 2.4 K/uL (1.3-3.6) Monocytes # (Auto) 0.7 K/uL (0.3-1.0) Eosinophils # (Auto) 0.1 K/uL (0.0-0.5) Basophils # (Auto) 0.1 K/uL (0.0-0.1) Nucleated RBC Absolute Count (auto) 0.00 K/uL Urine Color Straw Urine Clarity Clear Urine pH 6.0 pH (4.8-9.5) Urine Specific [place] 1.004 Urine Protein Negative mg/dL (NEGATIVE) Urine Glucose (UA) Negative mg/dL (NEGATIVE) Urine Ketones Negative mg/dL (NEGATIVE) Urine Blood Negative (NEGATIVE) Urine Nitrite Negative (NEGATIVE) Urine Bilirubin Negative (NEGATIVE) Urine Urobilinogen Negative mg/dL (0.2-1.9) Urine Leukocyte Esterase Negative (NEGATIVE) Urine RBC None /HPF (0-2/HPF) Urine WBC 2 /HPF (0-5/HPF) Urine Squamous Epithelial Cells None /LPF (</=FEW) Urine Bacteria Negative /HPF (NONE-FEW) Urine Mucus None /HPF (NONE-FEW) Glomerular Filtration Rate Calc > 60.0 Calcium Level 8.9 mg/dl (8.4-10.2) Magnesium Level 2.1 mg/dl (1.7-2.2) Total Bilirubin 0.4 mg/dl (0.2-1.3) Aspartate Amino Transf (AST/SGOT) 28 U/L (0-35) Alanine Aminotransferase (ALT/SGPT) 26 U/L (0-56) Alkaline Phosphatase 62 U/L (0-126) Total Protein 7.5 g/dl (6.3-8.2) Albumin 4.5 g/dl (3.5-5.0) Lipase 111 U/L (23-300) Urine Opiates Screen Positive Urine Barbiturates Screen Negative Ur Tricyclic Antidepressants Screen Negative Urine Phencyclidine Screen Negative Urine Amphetamines Screen Negative Urine Benzodiazepines Screen Negative Urine Cocaine Screen Negative Urine Cannabinoids Screen Negative Serum Alcohol 192 mg/dl Toxicology Test 09/26/18 00:00 Urine Opiates Screen Positive Urine Barbiturates Screen Negative Ur Tricyclic Antidepressants Screen Negative Urine Phencyclidine Screen Negative Urine Amphetamines Screen Negative Urine Benzodiazepines Screen Negative Urine Cocaine Screen Negative Urine Cannabinoids Screen Negative Serum Alcohol 192 mg/dl Urinalysis Test 09/26/18 00:00 Urine Color Straw Urine Clarity Clear Urine pH 6.0 pH (4.8-9.5) Urine Specific [place] 1.004 Urine Protein Negative mg/dL (NEGATIVE) Urine Glucose (UA) Negative mg/dL (NEGATIVE) Urine Ketones Negative mg/dL (NEGATIVE) Urine Blood Negative (NEGATIVE) Urine Nitrite Negative (NEGATIVE) Urine Bilirubin Negative (NEGATIVE) Urine Urobilinogen Negative mg/dL (0.2-1.9) Urine Leukocyte Esterase Negative (NEGATIVE) Urine RBC None /HPF (0-2/HPF) Urine WBC 2 /HPF (0-5/HPF) Urine Squamous Epithelial Cells None /LPF (</=FEW) Urine Bacteria Negative /HPF (NONE-FEW) Urine Mucus None /HPF (NONE-FEW) ED Course/Re-evaluation ED Course 33 m with hx of nephrolithiasis and pancreatitis presents with abd pain he feels could be either etiology. His exam is less consistent with emergent cause, though due to hx and pain, ct obtained. Ultimately, all labs, CT negative for acute pathology. Pt is comfortable going home and understands SRPs as he may have early/developing process. Decision to Disposition Date: Sep 26, 2018 Decision to Disposition Time: 02:21 Depart Departure Latest Vital Signs Vital Signs Date Time Temp Pulse Resp B/P (MAP) Pulse Ox O2 Delivery O2 Flow Rate FiO2 09/26/18 02:10 79 90 09/26/18 02:00 126/84 (98) 09/25/18 23:20 98.7 12 Room Air Impression: Primary Impression: Abdominal pain Condition: Improved Disposition: HOME OR SELF-CARE Patient Instructions: Abdominal Pain (ED) Additional Instructions: As we discussed, I do not see a clear cause of your abdominal pain at this time. Given that your CT is unremarkable and all labs are normal, it is unlikely at this point that it is a serious cause, however as a serious process may develop, please return immediately for worsening symptoms. Please follow-up with your primary doctor this week for reevaluation. Problem Qualifiers Primary Impression: Abdominal pain Abdominal location: generalized Qualified Codes: R10.84 - Generalized abdominal pain JAISON ARORA MD Sep 26, 2018 00:05
[2018-09-26 00:26] LABS: PLATELET COUNT, AUTOMATED 243 K/uL (150-450)
[2018-09-26] MEDS ORDERED: IOPAMIDOL 76% 150 ML INFUS BTL 150 ML ONE (01:23)
[2018-09-26 02:00] VITALS: BP 126/84
--- NOTE | 2018-09-26 02:14 | RADIOLOGY IMAGING REPORT ---
FACILITY: [facility] PATIENT NAME: Troy Mabry : 1985 MR: [id number] V: [id number] EXAM DATE: [id number] ORDERING PHYSICIAN: JAISON ARORA TECHNOLOGIST: Location: [facility] [place] Patient: Troy aMbry : 1985 Visit/Account:[id number] Date of Sevice: 09/26/2018 CT of the abdomen and pelvis with contrast: Indication: Abdominal pain. History of pancreatitis and urinary tract calculus. Technique: Helical CT was performed through the abdomen and pelvis following IV contrast enhancement with 75 cc of [id number]. Multiplanar reconstructions are reviewed. One of the following dose optimization techniques was utilized in the performance of this exam: Autom ated exposure control; adjustment of the mA and/or kV according to the patient's size; or use of an i terative reconstruction technique. Specific details can be referenced in the facility's radiology CT exam operational policy. Comparison: 05/20/2018 Lower lung grissom: No parenchymal consolidation or pleural effusion is identified. Liver: Normal in size, shape, and density. The venous are unremarkable, as visualized. Gallbladder/biliary tree: The gallbladder is normal in size and homogeneous in density. The bile duct s are not dilated. Pancreas: The pancreatic parenchyma appears homogeneous and unremarkable. There are no signs of acute inflammation, peripancreatic fluid, cyst, mass, or calcification. Spleen: Normal in size, shape, and density. Adrenal glands: Within normal limits. Kidneys/urinary bladder: There are bilateral nonobstructing intrarenal calculi, measuring up to 3 mm on the right and up to 2 mm on the left. There are no signs of ureteral calculus or obstruction on ei ther side. The kidneys are otherwise normal in size, shape, and density. The bladder lumen appears ho mogeneous and unremarkable. Intestinal structures: The intestinal structures are unremarkable, as visualized. There are no signs of obstruction, focal dilatation, or focal inflammatory changes. Pelvis: Unremarkable. Aorta and vascular structures: Within normal limits. Ascites or fluid collections: None seen. Skeletal structures: Well mineralized and intact. Impression: There are bilateral nonobstructing intrarenal calculi, measuring up to 3 mm in size. Ther e are no signs of ureteral calculus or obstruction. The pancreas and peripancreatic soft tissues appear unremarkable. Report Dictated By: Onel Arnold MD at 09/26/2018 1:55 AM Report E-Signed By: Onel Arnold MD at 09/26/2018 2:10 AM WSN:[id number]
== END 2018-09-26 02:25 | disposition home or self-care (01) ==
LOC: ER 23:35
DX: R10.84 Generalized abdominal pain (principal)
CPT/HCPCS: 36415; 74177; 80305; 80320; 81001; 82330; 83690; 83735; 85025; 96374; 96375; 99284; J2270; J2405; Q9967; 82040; 82247; 82310; 82374; 82435; 82565; 82947; 84075; 84132; 84155; 84295; 84450; 84460; 84520

== ENCOUNTER → 2018-10-03 | Outpatient (CLI) | payer SELFPAY | LOC: LAB 15:06 | PROVIDERS: ATTEND Urology | DX: Z02.9 Encounter for administrative examinations, unspecified (principal) ==

== ENCOUNTER 2018-10-05 08:36 | Emergency (ER) | payer SELFPAY ==
--- NOTE | 2018-10-05 08:46 | ER Report ---
History and Physical Time Seen By MD: 08:46 Hx. of Stated Complaint: PATIENT STATES HE IS HAVING PANCREATITIS DYE TO ABD PAIN LIKE NO OTHER. STATES PANCREATITIS 2 MONTHS AGO. LAST EPISODE DUE TO ALCOHOL BUT STATES NO ALCOHOL FOR 2 MONTHS HPI/ROS 33 y/o male with a history of kidney stones and pancreatitis. States that he stopped drinking alcohol altogether after his episode of pancreatitis, yet the EMR states otherwise. His chief complaint is "I have pancreatitis." He complains of b/l lower quadrant pain. He is s/p appendectomy. No hematuria or dysuria. He is nauseous and is asking for pain medication. No diarrhea. No fever/chills. Allergies: Coded Allergies: No Known Drug Allergies (Unverified , 10/05/18) Home Meds Reported Medications Gabapentin (GABAPENTIN) 300 Mg Capsule, 300 MG PO TID, CAPSULE 04/13/18 Discontinued Reported Medications Citalopram Hydrobromide (CELEXA) 10 Mg Tablet, 10 MG PO QDAY, #5 TAB 05/16/18 Hx Smoking: Yes Smoking Status: Current: Some Days Smoker Exposure to Second Hand Smoke?: No Hx Substance Use Disorder: No Hx Alcohol Use: Yes Constitutional Vital Sign - Last 24 Hours 10/05/18 08:39 Temp 98.0 O2 Delivery Room Air Physical Exam GE: alert and oriented in NAD CV: RRR no m/r/g Lungs: cta b/l Abdomen: soft, mild LLQ TTP. No midepigastric TTP. Back: no flank pain or TTP. Medical Decision Making Data Points Result Diagram: 10/05/18 0849 10/05/18 0849 Laboratory Hematology Test 10/05/18 08:49 Red Blood Count 5.64 M/uL (4.00-5.60) Mean Corpuscular Volume 92.4 fL (80.0-96.0) Mean Corpuscular Hemoglobin 31.0 pg (26.0-33.0) Mean Corpuscular Hemoglobin Concent 33.6 g/dL (32.0-36.0) Red Cell Distribution Width 13.6 % (11.5-14.5) Mean Platelet Volume 8.2 fL (7.2-11.1) Neutrophils (%) (Auto) 75.5 % (39.4-72.5) Lymphocytes (%) (Auto) 14.7 % (17.6-49.6) Monocytes (%) (Auto) 8.0 % (4.1-12.4) Eosinophils (%) (Auto) 1.2 % (0.4-6.7) Basophils (%) (Auto) 0.6 % (0.3-1.4) Nucleated RBC Relative Count (auto) 0.4 /100WBC Neutrophils # (Auto) 6.4 K/uL (2.0-7.4) Lymphocytes # (Auto) 1.2 K/uL (1.3-3.6) Monocytes # (Auto) 0.7 K/uL (0.3-1.0) Eosinophils # (Auto) 0.1 K/uL (0.0-0.5) Basophils # (Auto) 0.1 K/uL (0.0-0.1) Nucleated RBC Absolute Count (auto) 0.04 K/uL Sodium Level 141 mmol/L (137-145) Potassium Level 4.1 mmol/L (3.5-5.0) Chloride Level 105 mmol/L (98-107) Carbon Dioxide Level 29 mmol/L (22-30) Blood Urea Nitrogen 19 mg/dl (9-21) Creatinine 1.20 mg/dl (0.66-1.25) Glomerular Filtration Rate Calc > 60.0 Random Glucose 88 mg/dl (75-110) Calcium Level 9.4 mg/dl (8.4-10.2) Total Bilirubin 0.4 mg/dl (0.2-1.3) Aspartate Amino Transf (AST/SGOT) 26 U/L (0-35) Alanine Aminotransferase (ALT/SGPT) 27 U/L (0-56) Alkaline Phosphatase 63 U/L (0-126) Total Protein 8.2 g/dl (6.3-8.2) Albumin 4.6 g/dl (3.5-5.0) Lipase 91 U/L (23-300) Chemistry Test 10/05/18 08:49 White Blood Count 8.5 k/uL (4.5-11.0) Red Blood Count 5.64 M/uL (4.00-5.60) Hemoglobin 17.5 g/dL (14.0-18.0) Hematocrit 52.1 % (42.0-52.0) Mean Corpuscular Volume 92.4 fL (80.0-96.0) Mean Corpuscular Hemoglobin 31.0 pg (26.0-33.0) Mean Corpuscular Hemoglobin Concent 33.6 g/dL (32.0-36.0) Red Cell Distribution Width 13.6 % (11.5-14.5) Platelet Count 227 K/uL (150-450) Mean Platelet Volume 8.2 fL (7.2-11.1) Neutrophils (%) (Auto) 75.5 % (39.4-72.5) Lymphocytes (%) (Auto) 14.7 % (17.6-49.6) Monocytes (%) (Auto) 8.0 % (4.1-12.4) Eosinophils (%) (Auto) 1.2 % (0.4-6.7) Basophils (%) (Auto) 0.6 % (0.3-1.4) Nucleated RBC Relative Count (auto) 0.4 /100WBC Neutrophils # (Auto) 6.4 K/uL (2.0-7.4) Lymphocytes # (Auto) 1.2 K/uL (1.3-3.6) Monocytes # (Auto) 0.7 K/uL (0.3-1.0) Eosinophils # (Auto) 0.1 K/uL (0.0-0.5) Basophils # (Auto) 0.1 K/uL (0.0-0.1) Nucleated RBC Absolute Count (auto) 0.04 K/uL Glomerular Filtration Rate Calc > 60.0 Calcium Level 9.4 mg/dl (8.4-10.2) Total Bilirubin 0.4 mg/dl (0.2-1.3) Aspartate Amino Transf (AST/SGOT) 26 U/L (0-35) Alanine Aminotransferase (ALT/SGPT) 27 U/L (0-56) Alkaline Phosphatase 63 U/L (0-126) Total Protein 8.2 g/dl (6.3-8.2) Albumin 4.6 g/dl (3.5-5.0) Lipase 91 U/L (23-300) ED Course/Re-evaluation ED Course Benign abdominal exam, no midepigartic pain or TTP. Normal labs. Not c/w kidney tones. Taking PO. Normal bowel movements. Not concerning for SBO. Will recommend supportive care. Decision to Disposition Date: Oct 05, 2018 Decision to Disposition Time: 09:53 Depart Departure Latest Vital Signs Vital Signs Date Time Temp Pulse Resp B/P (MAP) Pulse Ox O2 Delivery O2 Flow Rate FiO2 10/05/18 08:39 98.0 Room Air Impression: Primary Impression: Abdominal pain Condition: Improved Disposition: HOME OR SELF-CARE Patient Instructions: Abdominal Pain (ED) Problem Qualifiers Primary Impression: Abdominal pain Abdominal location: left lower quadrant Qualified Codes: R10.32 - Left lower quadrant pain CARMINA ARORA MD Oct 05, 2018 08:46
[2018-10-05] MEDS ORDERED: NS(*) 0.9% 1000 ML BAG 1,000 ML IV ONE (08:50)
[2018-10-05 08:55] LABS: PLATELET COUNT, AUTOMATED 227 K/uL (150-450)
[2018-10-05] MEDS ORDERED: ONDANSETRON 4 MG/2 ML VIAL IVP ONE (09:30)
[2018-10-05 09:34] VITALS: BP 131/77
[2018-10-05] MEDS ORDERED: KETOROLAC 30 MG/ML VIAL IVP ONE (09:40)
== END 2018-10-05 10:09 | disposition home or self-care (01) ==
LOC: ER 08:52
DX: R10.32 Left lower quadrant pain (principal); Z87.442 Personal history of urinary calculi; Z87.19 Personal history of other diseases of the digestive system; F17.200 Nicotine dependence, unspecified, uncomplicated
CPT/HCPCS: 83690; 85025; 96361; 96374; 96375; 99284; J1885; J2405; J7030; 82040; 82247; 82310; 82374; 82435; 82565; 82947; 84075; 84132; 84155; 84295; 84450; 84460; 84520